=== PATIENT | male | born 1990 ===

== ENCOUNTER 2020-06-25 15:05 | Outpatient (REF) | payer OTHER, SELFPAY ==
[2020-06-25 16:46] LABS: MANUAL DIFF FLAG NO
[2020-06-25 16:49] LABS: Basophils Percent Auto 0.3 % (0-2); Eosinophils Absolute Auto 0.2 X10*3/uL (0.0-0.4); Hematocrit 46.2 % (42-52); Hemoglobin 15.2 g/dl (14.0-18.0); Imm Gran Abs Auto 0.06 X10*3/uL (0.00-0.03); Imm Gran Pct Auto 0.6 % (0.0-0.4); Lymphocytes Absolute Auto 2.8 X10*3/uL (1.2-4.9); Mean Corpuscular HGB Conc 32.9 g/dl (31.0-36.0); Mean Corpuscular Hemoglobin 29.1 pg (27.0-33.0); Mean Corpuscular Volume 88.5 fL (80-98); Mean Platelet Volume 9.5 fL (9.4-12.4); Monocytes Absolute Auto 0.7 X10*3/uL (0.1-1.2); Monocytes Percent Auto 7.4 % (2-11); Neutrophils Absolute Auto 5.7 X10*3/uL (2.0-8.3); Neutrophils Percent Auto 59.7 % (45-73); Platelet Count 230 X10*3/uL (160-400); Red Blood Count 5.22 X10*6/uL (4.60-5.80); Red Cell Distribution Width 13.3 % (11.0-16.0); White Blood Count 9.5 X10*3/uL (4.8-10.8)
[2020-06-25 17:13] LABS: Alanine Aminotransferase 48 U/L (0-40); Albumin Level 4.3 g/dL (3.5-5.0); Alkaline Phosphatase 77 U/L (39-117); Anion Gap 12 (12-20); Aspartate Amino Transferase 31 U/L (5-37); Bilirubin Total 0.4 mg/dL (0.0-1.0); Blood Urea Nitrogen 11 mg/dL (9-16); Calcium 9.7 mg/dL (8.4-10.2); Carbon Dioxide 26 mmol/L (22-29); Chloride 106 mmol/L (96-108); Estimated Glomerular Filt Rate > 60; Glucose Random 99 mg/dL (60-115); Potassium 4.3 mmol/L (3.3-5.1); Sodium 140 mmol/L (135-145); Total Protein 7.5 g/dL (6.5-8.0)
[2020-06-25 17:35] LABS: Ferritin 287 ng/mL (20-250); TSH reflex Free T4 1.43 uIU/mL (0.32-4.0)
== END 2020-06-25 15:06 | disposition home or self-care (01) ==
LOC: HO.LAB 15:05
PROVIDERS: PCP Internal Medicine; Visit Provider Nurse Practitioner
DX: K62.5 Hemorrhage of anus and rectum (principal); K64.9 Unspecified hemorrhoids; K59.00 Constipation, unspecified
CPT/HCPCS: 36415; 80053; 82728; 84443; 85025

== ENCOUNTER → 2020-07-16 13:48 | Outpatient (BNVA) | payer OTHER, SELFPAY | PROVIDERS: PCP Internal Medicine; Visit Provider Nurse Practitioner ==

== ENCOUNTER 2021-07-17 16:25 | Emergency (ER) | payer OTHER, SELFPAY ==
[2021-07-17 17:12] VITALS: BP 158/89; PULSE 88; RESP 18; TEMP 37; O2SAT 99; BMI 55.3
--- NOTE | 2021-07-17 17:44 | ED_ITS ---
HPI - Extremity Problem General Chief complaint: Extremity Problem Stated complaint: finger infection Source: patient Mode of arrival: ambulatory Limitations: no limitations History of Present Illness HPI Narrative: 31-year-old male presents with paronychia to the left index finger. Patient does bite his nails. MD Complaint: extremity pain and extremity swelling Onset (ago): day(s) (4) Pain Consistency: constant Location: left and upper extremity Severity scale (1-10): 6 Quality: aching Radiation: none Relieving factors: nothing Exacerbating factors: range of motion and palpation Associated symptoms: denies other symptoms Related Data Previous Rx's Medication Instructions Recorded sennosides 8.6 mg-docusate sodium 2 tab-cap PO BEDTIME #60 cap 06/14/20 50 mg capsule (Senna Plus) amoxicillin 875 mg-potassium 1 tab PO Q12H 7 Days #14 tab 07/17/21 clavulanate 125 mg tablet Allergies Allergy/AdvReac Type Severity Reaction Status Date / Time penicillin V Allergy Unknown ??? - has Verified 12/31/20 10:32 taken amoxicillin with no problems Penicillins [PENICILLINS] Allergy Unknown UNK Verified 12/31/20 10:32 Review of Systems Review of Systems: Constitutional: No Fever, No Chills ENT/Mouth: No Ear Pain, No Hoarseness, No sore throat Eyes: No Eye Pain, No Swelling, No Redness, No Foreign Body Cardiovascular: No Chest Pain, No SOB Respiratory: No Cough, No Dyspnea Gastrointestinal: No Nausea, No Vomiting, No Diarrhea, No abdominal Pain Genitourinary: No Dysuria, No Hematuria Musculoskeletal: positive left index finger pain, No Myalgias, No Joint Swelling Skin: Positive left index finger erythema, No Skin lacerations, No rash Neuro: No Weakness, No Numbness, No Paresthesias, No Loss of Consciousness, No Dizziness, No Headache Psych: No Anxiety/Panic, No Depression Heme/Lymph: no easy bruising, no Lymphadenopathy Endocrine: No Polyuria, No Polydipsia Yes all other systems are reviewed and are negative [facility] Past Medical History Attestation statement: The following information was validated with the patient. Source: old records reviewed Medical History Anxiety Constipation Hemorrhoids Hyperlipidemia Insomnia Morbid obesity with BMI of 50.0-59.9, adult Vitamin D deficiency Surgical History History of wisdom tooth extraction Testicular torsion Family History Family History Father Hyperlipidemia Paroxysmal atrial fibrillation Mother Diabetes FH: mental illness Family/Other FH: mental illness Maternal Grandfather Alzheimer's dementia Social History Social History Housing: Apartment Alcohol intake: never Patient Tobacco Use Status: Never used Tobacco Second Hand Smoke Exposure: Yes Advance Directives: No Advance Directives Information Provided: Yes service: No Current occupational status: employed Physical Exam Vital Signs: Vital Signs: Last Vital Signs Temp 98.6 F 07/17/21 17:12 Pulse 88 07/17/21 17:12 Resp 18 07/17/21 17:12 BP 158/89 H 07/17/21 17:12 Pulse Ox 99 07/17/21 17:12 BMI result Body Mass Index 55.3 Appearance: Alert. Oriented X3. No acute distress. Eyes: Pupils equal, round and reactive to light. ENT: Pharynx normal. Neck: Normal inspection. Neck supple. CVS: Normal heart rate and rhythm. Pulses normal. Respiratory: No respiratory distress. Breath sounds normal. Abdomen: Soft and nontender. Skin: Skin warm and dry. Normal skin color. Normal skin turgor. Extremities: Paronychia to the index finger left. Neuro: No motor deficit. No sensory deficit. Cranial nerves 2-12 intact Course Course Course Narrative: 31-year-old male presents with paronychia to the left index finger. Will update Tdap vaccine. Give Augmentin as he does bite his nails. Swelling noted after he was biting his nails several days ago. Cleaned with Betadine by this [employer]. Incision made along the cuticle line, expressed small amount of purulent drainage. Wrapped with Kerlix and Telfa. Will prescribe Augmentin for the next 7 days. Patient verbalized understanding of and agrees to plan of care to discharge home. Verbalized understanding of signs and symptoms indicating need for emergent intervention MDM - Extremity (Nontraumatic) MDM Narrative Medical decision making narrative: Paronychia, cellulitis Medical Records Attestation: I reviewed the patient's medical records. Discharge Plan Discharge Clinical Impression: Paronychia of finger Patient Disposition: Home, Self-Care Instructions: Paronychia (ED) Additional Instructions: You were evaluated for swelling to the left 1st finger. This is called a paronychia. Please take Augmentin 875 mg twice a day for the next 7 days We updated your Tdap vaccine today. Thank you for choosing this emergency department for evaluation. Please follow-up with primary care physician as needed. Return to the emergency department for any new, concerning, or worsening symptoms. Prescriptions: New amoxicillin-pot clavulanate 875-125 mg tablet 1 tab PO Q12H 7 Days Qty: 14 0RF No Action Senna Plus 8.6-50 mg capsule 2 tab-cap PO BEDTIME Qty: 60 0RF Interventions: ED Discharge Assessment Last Done: 07/17/21 18:57 Discharge Date/Time: 07/17/21 19:01
[2021-07-17] MEDS: Diphth,Pertus(ACell),Tet Adult 0.5 ML SYRINGE IM (18:17)
[2021-07-17] MEDS: Amoxicillin/Potassium Clav 875 MG TABLET PO (18:18)
[2021-07-17] MEDS: Ibuprofen 600 MG TABLET PO (18:18)
== END 2021-07-17 19:01 | disposition home or self-care (01) ==
PROVIDERS: Emergency Provider Internal Medicine; PCP Internal Medicine
DX: L03.012 Cellulitis of left finger (principal); Z88.0 Allergy status to penicillin
CPT/HCPCS: 10060; 90471; 90715; 99283; 99284

== ENCOUNTER → 2022-03-19 10:07 | Outpatient (BNVA) | payer OTHER, SELFPAY | PROVIDERS: PCP Internal Medicine; Visit Provider Nurse Practitioner | DX: K59.00 Constipation, unspecified (principal); K62.5 Hemorrhage of anus and rectum | CPT/HCPCS: 99212 ==

== ENCOUNTER 2022-06-05 12:52 | Outpatient (REF) | payer OTHER, SELFPAY ==
--- NOTE | ~2022-06-05 | XR_ITS ---
EXAMINATION: XR lumbar spine 2-3V CLINICAL INFORMATION: Reason for Exam M54.50 - Low back pain, unspecified COMPARISON: None TECHNIQUE: 3 views of the lumbar spine FINDINGS: 5 nonrib-bearing lumbar-type vertebral bodies. Vertebral body heights are maintained. Alignment is maintained. Disc space heights are maintained. Paravertebral soft tissues are unremarkable. XR/XR lumbar spine 2-3V IMPRESSION: Unremarkable exam.
--- NOTE | ~2022-06-05 | XR_ITS ---
EXAMINATION: XR HIP, RIGHT CLINICAL INFORMATION: Right hip pain COMPARISON: None available. TECHNIQUE: Two views of the right hip. FINDINGS: Bones and soft tissues are normal. No fracture. Alignment is anatomic. Hip joint space is maintained. XR/XR hip RT min 2V IMPRESSION: Normal right hip.
[2022-06-05 13:04] LABS: MANUAL DIFF FLAG NO
[2022-06-05 14:01] LABS: Basophils Absolute Auto 0.1 X10*3/uL (0.0-0.2); Basophils Percent Auto 0.6 % (0-2); Eosinophils Absolute Auto 0.2 X10*3/uL (0.0-0.4); Eosinophils Percent Auto 1.8 % (0-4); Hematocrit 46.6 % (42.0-52.0); Hemoglobin 15.4 g/dl (14.0-18.0); Imm Gran Abs Auto 0.07 X10*3/uL (0.00-0.03); Imm Gran Pct Auto 0.8 % (0.0-0.4); Lymphocytes Absolute Auto 3.1 X10*3/uL (1.2-4.9); Lymphocytes Percent Auto 34.2 % (20-40); Mean Corpuscular Volume 90.7 fL (80.0-98.0); Mean Platelet Volume 9.9 fL (9.4-12.4); Monocytes Absolute Auto 0.6 X10*3/uL (0.1-1.2); Monocytes Percent Auto 6.8 % (2-11); Neutrophils Absolute Auto 5.1 x10*3/uL (2.0-8.3); Neutrophils Percent Auto 55.8 % (45-73); Platelet Count 234 X10*3/uL (160-400); Red Blood Count 5.14 X10*6/uL (4.60-5.80); Red Cell Distribution Width 13.2 % (11.0-16.0); White Blood Count 9.1 X10*3/uL (4.8-10.8)
[2022-06-05 14:03] LABS: Appearance Urine Clear; Color Urine Yellow; Glucose Urine UA Negative (Negative); Leukocyte Esterase Urine Negative (Negative); Nitrite Urine Negative (Negative); PH 5.5 (5.0-9.0); Urine Blood Negative (Negative); Urine Ketones Negative (Negative); Urine Protein Negative (Neg-Trace)
[2022-06-05 14:18] LABS: Alanine Aminotransferase 50 U/L (0-40); Alkaline Phosphatase 68 U/L (39-117); Anion Gap 14 (12-20); Aspartate Amino Transferase 34 U/L (5-37); Bilirubin Total 0.8 mg/dL (0.0-1.0); Blood Urea Nitrogen 11 mg/dL (9-16); C Reactive Protein 0.41 mg/dL (< or = 0.50); Calcium 9.3 mg/dL (8.4-10.2); Carbon Dioxide 25 mmol/L (22-29); Chloride 105 mmol/L (96-108); Cholesterol 218 mg/dL; Estimated Glomerular Filt Rate > 60; Glucose Fasting 93 mg/dL (60-99); HDL Cholesterol 33 mg/dL; LDL Cholesterol Calculated 159 mg/dl; Magnesium 1.9 mg/dL (1.6-2.6); Potassium 4.7 mmol/L (3.3-5.1); Sodium 139 mmol/L (135-145); Total Protein 6.8 g/dL (6.5-8.0); Triglycerides 130 mg/dL
[2022-06-05 14:43] LABS: Erythrocyte Sedimentation Rate 16 MM/HR (0-15)
[2022-06-05 14:48] LABS: Folate 5.9 ng/mL (> or = 4.0); TSH reflex Free T4 2.09 uIU/mL (0.32-4.0); Vitamin B12 252 pg/mL (200-900); Vitamin D 25-OH Total 10.6 ng/mL (>30)
== END 2022-06-05 12:53 | disposition home or self-care (01) ==
LOC: HO.XRAY 12:52
PROVIDERS: PCP Internal Medicine; Visit Provider Internal Medicine
DX: Z00.00 Encounter for general adult medical examination without abnormal findings (principal); M54.50 Low back pain, unspecified; M25.551 Pain in right hip; E55.9 Vitamin D deficiency, unspecified; R20.2 Paresthesia of skin; E53.8 Deficiency of other specified B group vitamins; E78.00 Pure hypercholesterolemia, unspecified; E66.01 Morbid (severe) obesity due to excess calories; Z68.43 Body mass index [BMI] 50.0-59.9, adult
CPT/HCPCS: 36415; 72100; 73502; 80053; 80061; 81003; 82306; 82607; 82746; 83735; 84443; 85025; 85652; 86140

== ENCOUNTER 2022-06-08 07:30 | Outpatient (REF) | payer OTHER, SELFPAY ==
--- NOTE | ~2022-06-08 | CT_ITS ---
EXAMINATION: CT HEAD WITHOUT CONTRAST CLINICAL INFORMATION: Amnesia. COMPARISON: None available. TECHNIQUE: Contiguous axial imaging was performed from the skull base to vertex without intravenous administration of contrast. This CT examination was performed using dose optimization techniques as appropriate, variously including the following: *Automated exposure control. *Adjustment of mA and/or kV according to patient size (this includes techniques or standardized protocols for targeted exams where dose is matched to indication/reason for exam; i.e. extremities or head). *Use of iterative reconstruction technique. DLP: 956 mGy-cm FINDINGS: There is no evidence of acute intracranial hemorrhage or edematous territorial infarction. Glover-white matter differentiation is preserved. There is no abnormal attenuation within the brain parenchyma. The ventricles are normal in morphology and size. No evidence for obstructive hydrocephalus. No abnormal mass effect or midline shift. Normal positioning of the cerebellar tonsils. The suprasellar cistern remains widely patent. No extra-axial fluid collections. No acute soft tissue or osseous abnormalities. Mild mucosal thickening of the paranasal sinuses. Moderate leftward nasal septal deviation with spurring. The mastoid air cells and middle ear cavities are clear. CT/CT head/brain wo IV con IMPRESSION: No evidence of acute intracranial hemorrhage or edematous territorial infarction.
== END 2022-06-08 07:31 | disposition home or self-care (01) ==
LOC: HO.CT 07:30
PROVIDERS: PCP Internal Medicine; Visit Provider Nurse Practitioner Family
DX: R41.3 Other amnesia (principal)
CPT/HCPCS: 70450

== ENCOUNTER 2022-06-08 13:45 | Outpatient (AMB) | payer OTHER, SELFPAY ==
[2022-06-08 14:17] VITALS: BP 192/80; PULSE 92; TEMP 36.1; O2SAT 97; BMI 54.1
--- NOTE | 2022-06-08 14:17 | MHC.PC.OV ---
Vital Signs 06/08/22 14:17 Height 5 ft 10 in Weight 377 lb 2 oz BMI 54.1 BP 192/80 H Blood Pressure Location Lt brachial Position Sitting Pulse 92 Pulse Source Pulse Oximeter Temp 97.0 F Temp Source Skin Pulse Oximetry (%) 97 Oxygen Delivery Method Room Air Intake Visit Reasons: Back Pain Intake Note: Pt is here for back pain Stitcher Feeder Required: No Accompanied by: Self / Same As Patient Allergies penicillin V Allergy (Unknown, Verified 03/08/23 15:30) ??? - has taken amoxicillin with no problems Penicillins [PENICILLINS] Allergy (Unknown, Verified 03/08/23 15:30) UNK Medication List - Last Reconciled 06/08/22 by Shaun Washburn MD No Known Home Meds Tobacco use date assessed: 05/21/22 HPI Back Pain HPI Details Patient comes in today complaining of increased low back pain and left groin / testicular pain x 1 week Reports experiencing some tingling sensation in his left arm last night but thinks that this was mostly because he was lying down on his arm when he woke up with the symptoms, and that they eventually subsided on their own after a few minutes and have not recurred since Recalls that he felt some sharp pains in his neck as well yesterday States that he had some x-rays and a head CT done last week on 06/05/22 and saw on his portal that the reports are NOT YET AVAILABLE at this time Also reports experiencing some twinges of pain in his right hip lately but thinks that he may have somehow strained his hip sometime recently Has been using some OTC pain patches and Ibuprofen PRN lately to help manage his symptoms He denies any headaches or dizziness Denies any chest pains, no SOB No nausea/vomiting, no abdominal pain and no change in bowel habits noted PFSH Medical History Nephrolithiasis Memory loss of unknown cause Anxiety Constipation Hemorrhoids Insomnia Morbid obesity with BMI of 50.0-59.9, adult Vitamin D deficiency Hyperlipidemia Surgical History Testicular torsion History of wisdom tooth extraction Family History Father Hyperlipidemia Paroxysmal atrial fibrillation Mother Diabetes FH: mental illness Family/Other FH: mental illness Maternal Grandfather Alzheimer's dementia Paternal Grandfather Skin cancer Paternal Uncle Multiple sclerosis Social History Housing: Apartment Alcohol intake: never Patient Tobacco Use Status: Never used Tobacco e-Cigarette/Vaping Use: Never Used Second Hand Smoke Exposure: Yes service: No Current occupational status: employed Cognitive needs: No Hearing needs: No Vision needs: Yes Questionnaire PHQ-9 Over the last 2 weeks, how often have you been bothered by any of the following problems? 1. Little interest or pleasure in doing things: several days 2. Feeling down, depressed, or hopeless: several days 3. Trouble falling or staying asleep, or sleeping too much: several days 4. Feeling tired or having little energy: several days 5. Poor appetite or overeating: several days 6. Feeling bad about yourself - or that you are a failure or have let yourself or your family down: several days 7. Trouble concentrating on things, such as reading the newspaper or watching television: several days 8. Moving or speaking so slowly that other people could have noticed. Or the opposite - being so fidgety or restless that you have been moving around a lot more than usual: several days 9. Thoughts that you would be better off or of hurting yourself in some way: several days Total score: 9 Depression Screening Interpretation: Positive Depression Screening Follow-up: Existing condition and Declines treatment 47853 - PHQ-9 Billing: Yes Source: Developed by Drs. Amilcar Mccollum, Mirta Sanchez, Gallo Mcneil and colleagues, with an educational debora from [employer]. Thrive Questionnaire Date Thrive assessed: 05/21/22 I am a: Patient What is your living situation today?: I have a steady place to live Within the past 12 months, did the food you bought not last and you didn't have the money to get more?: Never true Within the past 12 months, did you worry whether your food would run out before you got money to buy more?: Never true Do you have trouble paying for medicines?: No Do you have trouble getting transportation to medical appointments?: No Do you have trouble paying your heating and electricity bill?: No Do you have trouble taking care of your child, family member or friend?: No Do you have trouble with day-to-day activities such as bathing, preparing meals, shopping, managing finances, etc.?: No Are you currently unemployed and looking for a job?: No Are you interested in more education?: No Currently or been in a relationship where the following occur: no concerns reported AUDIT C Alcohol Use Questionnaire (AUDIT-C) 1. How often do you have a drink containing alcohol?: Never 3. How often do you have six or more drinks on one occasion?: Never Total Score: 0 Score Reviewed/Action Taken: Yes LJ-7 AMB Questionnaire LJ-7 Date LJ - 7 assessed: 05/21/22 Feeling nervous, anxious, or on edge: 1 = Several days Not being able to stop or control worryin = More than half the days Worrying too much about different things: 2 = More than half the days Trouble relaxin = More than half the days Being so restless that it is hard to sit still: 1 = Several days Becoming easily annoyed or irritable: 1 = Several days Feeling afraid as if something awful might happen: 2 = More than half the days Total LJ-7 score (0-4 normal; 5-9 mild; 10-14 moderate; 15-21 severe): 11 Source: Developed by Drs. Amilcar Mccollum, Mirta Sanchez, Gallo Mcneil and colleagues, with an educational debora from [employer]. Review of Systems Const Denies chills, Denies fatigue, Denies fever(s) and Denies headache(s) ENT Denies dysphagia, Denies dizziness, Denies otalgia, Denies headache(s), Reports neck pain (on and off), Denies odynophagia and Denies sore throat Card Denies chest pain, Denies palpitations and Denies dyspnea Resp Denies cough and Denies dyspnea GI Details: (+) on and off sharp pain over the left groin/inguinal area Denies abdominal pain, Denies constipation, Denies dysphagia, Denies heartburn, Denies diarrhea, Denies nausea, Denies odynophagia and Denies vomiting Denies dysuria, Denies nocturia and Denies urinary frequency Musc Reports back pain (on and off, over the lower back) and Reports neck pain (on and off) Skin/Breast Denies rash Neuro Denies dizziness and Denies headache(s) Endo Denies fatigue and Denies palpitations Physical exam (Primary Care) Vital Signs: Last Vital Signs Temp 97.0 F 06/08/22 14:17 Pulse 92 06/08/22 14:17 BP 192/80 H 06/08/22 14:17 Pulse Ox 97 06/08/22 14:17 Oxygen Delivery Method Room Air 06/08/22 14:17 BMI result Body Mass Index 54.1 Tobacco/Smoking Status: Tobacco use Status Tobacco use date assessed 05/21/22 06/08/22 14:19 Patient Tobacco Use Status Never used Tobacco 06/08/22 14:19 e-Cigarette/Vaping Use Never Used 06/08/22 14:19 PHQ-9: PHQ-9 Score PHQ-9: Total score 9 06/08/22 14:58 Depression Screening Interpretation: Positive Depression Screening Follow-up: Existing condition and Declines treatment Thrive Assessment: Date of Thrive Assessment Date Thrive assessed 05/21/22 06/08/22 14:19 Currently or been in a relationship where the following occur: no concerns reported Const General: no acute distress and alert HENMT Throat: Yes posterior oropharynx normal and Yes tonsils normal Neck Neck: Yes no lymphadenopathy and Yes supple Resp Auscultation: clear to auscultation bilaterally, no rales and no wheezes Cardio Rate: regular rate Rhythm: regular rhythm Heart sounds: no murmurs GI Palpation (GI): Soft to palpation and nontender Auscultation: normal bowel sounds Other: (+) mild tenderness on deep palpation over the left inguinal area Scrotum: testes descended bilaterally, no inguinal hernias, no masses and no scrotal swelling Back/Spine/Pelvis Cervical Spine: No Cervical spine tenderness Thoracic/Lumbar Spine: lumbar spinal tenderness (mild) Skin Rashes: no rashes Extrem General: Yes no clubbing, cyanosis or edema Assessment and Plan Assessment & Plan (1) Low back pain: Code(s): M54.50 - Low back pain, unspecified Qualifiers: Back pain laterality: midline Chronicity: unspecified Sciatica presence: without sciatica Qualified Code(s): M54.50 - Low back pain, unspecified Plan: Reinforced activity and weight-lifting restrictions Will follow up the results of his lumbar spine x-rays done yesterday (2) Right hip pain: Code(s): M25.551 - Pain in right hip Plan: Most likely due to hip strain Will start him for now on Tizanidine 4 mg TID PRN He is advised to call if his hip pain gets worse over the next few days - may need to refer him to physical therapy then Plan Follow up in 4 months Medications: New tizanidine 4 mg PO Q8H PRN 30 tabs 1RF low back pain 10 days Coding Level of Care Code Est Pt Level 3 (70886) Diagnoses Midline low back pain without sciatica, unspecified chronicity M54.50 Back pain laterality: midline Chronicity: unspecified Sciatica presence: without sciatica Right hip pain M25.551
== END 2022-06-08 15:06 | disposition home or self-care (01) ==
LOC: HO.HMGH 13:45
PROVIDERS: PCP Internal Medicine; Visit Provider Internal Medicine
DX: M54.50 Low back pain, unspecified (principal); M25.551 Pain in right hip
CPT/HCPCS: 99213

== ENCOUNTER 2022-06-19 12:07 | Emergency (ER) | payer OTHER, SELFPAY ==
--- NOTE | ~2022-06-19 | US_ITS ---
EXAMINATION: US SCROTUM CLINICAL INFORMATION: Left testicle pain. COMPARISON: September 27, 2015 TECHNIQUE: A sonogram of the scrotum was performed assessing gonsalez-scale appearance and color Doppler flow. Spectral Doppler analysis of the arterial and venous flow were performed in the testes bilaterally. FINDINGS: RIGHT: Right testicle measures 4.3 x 2.9 x 2.5 cm, volume 16.5 mL. No focal testicular parenchymal lesions are visualized. Spectral Doppler analysis of the arterial and venous flow is normal in the right testis. Right epididymal head is normal in size. No right varicocele is seen. There is a minimal right hydrocele present. Right epididymal Doppler flow is normal. LEFT: Left testicle measures 4.2 x 2.4 x 2.7 cm, volume 14.1 mL. No focal testicular parenchymal lesions are visualized. Spectral Doppler analysis of the arterial and venous flow is normal in the left testis. Left epididymal head is normal in size. No left hydrocele or varicocele is seen. Left epididymal Doppler flow is normal. US/US scrotum doppler IMPRESSION: Minimal right hydrocele. Otherwise essentially unremarkable scrotal ultrasound.
--- NOTE | ~2022-06-19 | CT_ITS ---
EXAMINATION: CT ABDOMEN AND PELVIS WITHOUT CONTRAST CLINICAL INFORMATION: Left flank pain radiating to left testicle COMPARISON: CT 04/11/2018 TECHNIQUE: Multidetector volumetric imaging was performed from the superior aspect of the liver through the pubic symphysis. Sagittal and coronal reformatted images were obtained on the technologist's workstation. This CT examination was performed using dose optimization techniques as appropriate, variously including the following: *Automated exposure control *Adjustment of mA and/or kV according to patient size (this includes techniques or standardized protocols for targeted exams where dose is matched to indication/reason for exam; i.e. extremities or head) *Use of iterative reconstruction technique DLP: 2784 mGy-cm FINDINGS: LUNG BASES: The visualized lung bases are unremarkable. LIVER, GALLBLADDER, AND BILIARY TREE: Diffuse fatty infiltration of the liver. The gallbladder is unremarkable with no evidence of radiopaque gallstones, gallbladder wall thickening, or obvious pericholecystic inflammatory changes. PANCREAS: Unremarkable. SPLEEN: Unremarkable. ADRENAL GLANDS: Unremarkable. KIDNEYS AND URETERS: There is a punctate calculus within the proximal left ureter demonstrated on series 3, image 53 and series 5, image 58 located at the level of L4 with very mild hydronephrosis. No additional renal or ureteral calculi. BLADDER: Unremarkable. GASTROINTESTINAL TRACT: The small and large bowel are unremarkable. The appendix is unremarkable. ABDOMINAL WALL: No significant hernia is appreciated. LYMPH NODES: Normal. VASCULAR: Unremarkable. PELVIC VISCERA: Unremarkable. OSSEOUS STRUCTURES: Unremarkable. CT/CT abdomen pelvis wo IV con IMPRESSION: 1. There is a punctate calculus within the proximal left ureter at the level of L4 with very mild hydronephrosis. 2. Diffuse fatty infiltration of the liver. Fleischner guidelines were followed.
--- NOTE | ~2022-06-19 | US_ITS ---
EXAMINATION: US SCROTUM CLINICAL INFORMATION: Left testicle pain. COMPARISON: September 27, 2015 TECHNIQUE: A sonogram of the scrotum was performed assessing gonsalez-scale appearance and color Doppler flow. Spectral Doppler analysis of the arterial and venous flow were performed in the testes bilaterally. FINDINGS: RIGHT: Right testicle measures 4.3 x 2.9 x 2.5 cm, volume 16.5 mL. No focal testicular parenchymal lesions are visualized. Spectral Doppler analysis of the arterial and venous flow is normal in the right testis. Right epididymal head is normal in size. No right varicocele is seen. There is a minimal right hydrocele present. Right epididymal Doppler flow is normal. LEFT: Left testicle measures 4.2 x 2.4 x 2.7 cm, volume 14.1 mL. No focal testicular parenchymal lesions are visualized. Spectral Doppler analysis of the arterial and venous flow is normal in the left testis. Left epididymal head is normal in size. No left hydrocele or varicocele is seen. Left epididymal Doppler flow is normal. US/US scrotum IMPRESSION: Minimal right hydrocele. Otherwise essentially unremarkable scrotal ultrasound.
[2022-06-19 12:17] VITALS: BP 129/71; PULSE 91; RESP 20; TEMP 36.9; O2SAT 98; BMI 53.4
--- NOTE | 2022-06-19 12:23 | ED_ITS ---
HPI - Male Genitourinary General Chief complaint: Urogenital-Male <REE Gutierrez - Last Filed: 06/19/22 12:24> Stated complaint: Left testicle <REE Gutierrez - Last Filed: 06/19/22 12:24> Time Seen by Provider: 06/19/22 16:10 <REE Gutierrez - Last Filed: 06/19/22 12:24> Source: patient <Silvia Rushing NP - Last Filed: 06/20/22 09:14> Mode of arrival: ambulatory <Siliva Rushing NP - Last Filed: 06/20/22 09:14> Limitations: no limitations <Silvia Rushing NP - Last Filed: 06/20/22 09:14> History of Present Illness HPI Narrative: 32 yo male with history of right testicular torsion here with complaints left testicle pain today with nausea. Has had intermittent left sided back pain with radiation to the left abdomen over the last week. No urinary symptoms, fevers, chills, vomiting, diarrhea. Patient denies any sexual activitiy ever. <Silvia Rushing NP - Last Filed: 06/20/22 09:14> Related Data Home medications: Previous Rx's Medication Instructions Recorded tizanidine 4 mg tablet 4 mg PO Q8H PRN low back pain 10 06/08/22 days #30 tabs <REE Gutierrez - Last Filed: 06/19/22 12:24> Allergies/Adverse reactions: Allergies Allergy/AdvReac Type Severity Reaction Status Date / Time penicillin V Allergy Unknown ??? - has Verified 06/19/22 12:20 taken amoxicillin with no problems Penicillins [PENICILLINS] Allergy Unknown UNK Verified 06/19/22 12:20 <REE Gutirerez - Last Filed: 06/19/22 12:24> Review of Systems Review of Systems: Yes all other systems are reviewed and are negative <Silvia Rushing NP - Last Filed: 06/20/22 09:14> Constitutional: Constitutional: Reports no additional constitutional complaints, Denies body ache(s), Denies chills, Denies fever(s), Denies headache(s) and Denies weakness <Silvia Rushing DISTRIBUTION SALES MANAGER - Last Filed: 06/20/22 09:14> Eyes: Eyes: Reports no additional eye complaints and Denies change in vision <Silvia Rushing DISTRIBUTION SALES MANAGER - Last Filed: 06/20/22 09:14> ENT: Reports system reviewed and no additional complaints, except as documented, Denies dizziness, Denies headache(s), Denies nasal congestion, Denies nasal discharge and Denies neck pain <Silvia Rushing DISTRIBUTION SALES MANAGER - Last Filed: 06/20/22 09:14> Cardiovascular: Cardiovascular: Reports no additional cardiovascular complaints, Denies chest pain, Denies leg edema and Denies dyspnea <Silvia Rushing DISTRIBUTION SALES MANAGER - Last Filed: 06/20/22 09:14> Respiratory: Respiratory: Reports no additional respiratory complaints, Denies cough and Denies dyspnea <Silvia Rushing DISTRIBUTION SALES MANAGER - Last Filed: 06/20/22 09:14> Gastrointestinal: Gastrointestinal: Reports no additional gastrointestinal complaints, Denies abdominal pain, Denies diarrhea, Reports nausea and Denies vomiting <Silvia Rushing DISTRIBUTION SALES MANAGER - Last Filed: 06/20/22 09:14> Genitourinary: Genitourinary: Reports testicular pain and Denies urinary incontinence <Silvia Rushing DISTRIBUTION SALES MANAGER - Last Filed: 06/20/22 09:14> Musculoskeletal: Musculoskeletal: Reports no additional musculoskeletal complaints, Denies back pain, Denies arthralgias, Denies joint swelling, Denies neck pain, Denies numbness and Denies tingling <Silvia Rushing DISTRIBUTION SALES MANAGER - Last Filed: 06/20/22 09:14> Integumentary/Breasts: Skin/Breast: Reports system reviewed and no additional complaints, except as docu and Denies rash <Silvia Rushing DISTRIBUTION SALES MANAGER - Last Filed: 06/20/22 09:14> Neurologic: Reports system reviewed and no additional complaints, except as documented, Denies Abnormal speech present, Denies dizziness, Denies headache(s), Denies numbness, Denies tingling and Denies weakness <Silvia Rushing DISTRIBUTION SALES MANAGER - Last Filed: 06/20/22 09:14> PMF Past Medical History Attestation statement: The following information was validated with the patient. <Silvia Rushing NP - Last Filed: 06/20/22 09:14> Source: old records reviewed and nursing notes reviewed <Silvia Rushing NP - Last Filed: 06/20/22 09:14> Medical History: Medical History Anxiety Constipation Hemorrhoids Hyperlipidemia Insomnia Memory loss of unknown cause Morbid obesity with BMI of 50.0-59.9, adult Vitamin D deficiency <REE Gutierrez - Last Filed: 06/19/22 12:24> Surgical History: Surgical History History of wisdom tooth extraction Testicular torsion <REE Gutierrez - Last Filed: 06/19/22 12:24> Family History Family History: Family History Father Hyperlipidemia Paroxysmal atrial fibrillation Mother Diabetes FH: mental illness Family/Other FH: mental illness Maternal Grandfather Alzheimer's dementia Paternal Grandfather Skin cancer Paternal Uncle Multiple sclerosis <REE Gutierrez - Last Filed: 06/19/22 12:24> Social History Social History: Social History Housing: Apartment Alcohol intake: never Patient Tobacco Use Status: Never used Tobacco e-Cigarette/Vaping Use: Never Used Second Hand Smoke Exposure: Yes Advance Directives: No Advance Directives Information Provided: No service: No Current occupational status: employed Cognitive needs: No Hearing needs: No Vision needs: Yes <REE Gutierrez - Last Filed: 06/19/22 12:24> Physical Exam Vital Signs: Vital Signs: Last Vital Signs Temp 98.5 F 06/19/22 12:17 Pulse 78 06/19/22 19:33 Resp 16 06/19/22 19:33 BP 156/82 H 06/19/22 19:33 Pulse Ox 98 06/19/22 19:33 O2 Del Method Room Air 06/19/22 19:33 BMI result Body Mass Index 53.4 <REE Gutierrez - Last Filed: 06/19/22 12:24> Vital Signs: Last Vital Signs Temp 98.5 F 06/19/22 12:17 Pulse 78 06/19/22 19:33 Resp 16 06/19/22 19:33 BP 156/82 H 06/19/22 19:33 Pulse Ox 98 06/19/22 19:33 O2 Del Method Room Air 06/19/22 19:33 BMI result Body Mass Index 53.4 <Silvia Rushing NP - Last Filed: 06/20/22 09:14> Const: General: cooperative, healthy appearing, comfortable and no acute distress <Silvia Rushing NP - Last Filed: 06/20/22 09:14> Orientation/consciousness: patient oriented x3 <Silvia Rushing NP - Last Filed: 06/20/22 09:14> Limitations: no limitations <Silvia Rushing NP - Last Filed: 06/20/22 09:14> HEENT: Head: Yes normal to inspection <Silvia Rushing NP - Last Filed: 06/20/22 09:14> Ears: hearing grossly normal bilaterally <Silvia Rushing NP - Last Filed: 06/20/22 09:14> General nose exam: Normal external nose present <Silvia Rushing NP - Last Filed: 06/20/22 09:14> Face and sinus: Yes normal facial exam <Silvia Rushing NP - Last Filed: 06/20/22 09:14> Mouth: Normal oral and palatal mucosa present <Silvia Rushing NP - Last Filed: 06/20/22 09:14> Throat: Yes posterior oropharynx normal <Silvia Rushing NP - Last Filed: 06/20/22 09:14> Eyes: General: appearance normal, both eyes and all related structures <Silvia Rushing NP - Last Filed: 06/20/22 09:14> Pupils: Equal, round and reactive pupils present <Silvia Rushing NP - Last Filed: 06/20/22 09:14> Neck: Neck: Yes normal visual inspection <Silvia Rushing NP - Last Filed: 06/20/22 09:14> Chest: Chest palpation & inspection: normal inspection of the chest <Silvia Rushing DISTRIBUTION SALES MANAGER - Last Filed: 06/20/22 09:14> Resp: Effort & Inspection: normal respiratory effort <Silvia Rushing DISTRIBUTION SALES MANAGER - Last Filed: 06/20/22 09:14> Auscultation: clear to auscultation bilaterally <Silvia Rushing DISTRIBUTION SALES MANAGER - Last Filed: 06/20/22 09:14> Cardio: Rate: regular rate <Silvia Rushing DISTRIBUTION SALES MANAGER - Last Filed: 06/20/22 09:14> Rhythm: regular rhythm <Silvia Rushing DISTRIBUTION SALES MANAGER - Last Filed: 06/20/22 09:14> Peripheral pulses: Peripheral pulses 2+ throughout <Silvia Rushing DISTRIBUTION SALES MANAGER - Last Filed: 06/20/22 09:14> GI: Inspection: Yes normal to inspection <Silvia Rushing DISTRIBUTION SALES MANAGER - Last Filed: 06/20/22 09:14> Palpation (GI): Soft to palpation and nontender <Silvia Rushing DISTRIBUTION SALES MANAGER - Last Filed: 06/20/22 09:14> Auscultation: normal bowel sounds <Silvia Rushing DISTRIBUTION SALES MANAGER - Last Filed: 06/20/22 09:14> : Other: Roberta MELGAR as career education teacher <Silvia Rushing DISTRIBUTION SALES MANAGER - Last Filed: 06/20/22 09:14> General: Yes no CVA tenderness <Silvia Rushing DISTRIBUTION SALES MANAGER - Last Filed: 06/20/22 09:14> Penis: normal penis <Silvia Rushing DISTRIBUTION SALES MANAGER - Last Filed: 06/20/22 09:14> Scrotum: scrotum normal <Silvia Rushing DISTRIBUTION SALES MANAGER - Last Filed: 06/20/22 09:14> Testes: Testes normal, no testicular swelling and no testicular tenderness <Silvia Rushing DISTRIBUTION SALES MANAGER - Last Filed: 06/20/22 09:14> Back/Spine/Pelvis: Back: no CVA tenderness <Silvia Rushing DISTRIBUTION SALES MANAGER - Last Filed: 06/20/22 09:14> Thoracic/Lumbar Spine: thoracic and lumbar spine normal to inspection <Silvia Rushing DISTRIBUTION SALES MANAGER - Last Filed: 06/20/22 09:14> Skin: General skin exam: no rashes or lesions noted <Silvia Rushing, DISTRIBUTION SALES MANAGER - Last Filed: 06/20/22 09:14> Neuro: General: patient oriented x3, no focal motor deficits and normal sensation to monofilament <Silvia Rushing DISTRIBUTION SALES MANAGER - Last Filed: 06/20/22 09:14> Cranial nerves: Yes Equal, round and reactive pupils present <Silvia Rushing, DISTRIBUTION SALES MANAGER - Last Filed: 06/20/22 09:14> Cognition (Neuro): normal cognition <Silvia Rushing, DISTRIBUTION SALES MANAGER - Last Filed: 06/20/22 09:14> Speech: No Abnormal speech present <Silviakareem Rushing, DISTRIBUTION SALES MANAGER - Last Filed: 06/20/22 09:14> Gait exam (Neuro): Normal gait present <Silvia Rushing DISTRIBUTION SALES MANAGER - Last Filed: 06/20/22 09:14> Motor exam (neuro): 5/5 motor strength present throughout <Silvia Rushing, DISTRIBUTION SALES MANAGER - Last Filed: 06/20/22 09:14> Extrem: General: Yes normal to inspection <Silvia Rushing DISTRIBUTION SALES MANAGER - Last Filed: 06/20/22 09:14> Course Course Course Narrative: RME performed by Areli Colmenares PA-C. Patient is 32 year old assigned male at presenting to the emergency department with left testicular pain. Patient has a history of right sided torsion. Labs and imaging ordered. Patient placed back in the waiting room pending room availability and results. <REE Gutierrez - Last Filed: 06/19/22 12:24> Reevaluation(s) Reevaluation #1: 1930-Sign out to Areli KEENAN pending CT <Silvia Rushing NP - Last Filed: 06/20/22 09:14> Medical Decision Making Medical Decision Making MDM Narrative: 32 yo male with history of obesity here with intermittent left sided flank pain with radiation to left abdomen over one week, radiating to left testicle today with nausea. On exam normal with no evidence of torsion. Patient reports no pain at this time but states flank/abdomen pain is intermittent. NO CVAT or AP. Will obtain labs, UA, US, CT A/P <Silvia Rushing NP - Last Filed: 06/20/22 09:14> Differential Diagnosis Differential Diagnoses: The differential diagnosis associated with the presentation includes <Silvia Rushing NP - Last Filed: 06/20/22 09:14> Less likely testicular torsion, intermittent torsion, epididymitis. Consider renal colic <Silvia Rushing NP - Last Filed: 06/20/22 09:14> Lab Data MDM Lab Attestation statement: I reviewed the patient's lab results. <Silvia Rushing NP - Last Filed: 06/20/22 09:14> Result Diagrams: 06/19/22 12:32 06/19/22 12:32 <REE Gutierrez - Last Filed: 06/19/22 12:24> Labs: Lab Results 06/19/22 06/19/22 06/19/22 Range/Units 12:32 12:32 12:32 WBC 12.7 H (4.8-10.8) X10*3/uL RBC 5.17 (4.60-5.80) X10*6/uL Hgb 15.4 (14.0-18.0) g/dl Hct 45.5 (42.0-52.0) % MCV 88.0 (80.0-98.0) fL MCH 29.8 (27.0-33.0) pg MCHC 33.8 (31.0-36.0) g/dl RDW 13.0 (11.0-16.0) % Plt Count 245 (160-400) X10*3/uL MPV 9.3 L (9.4-12.4) fL Absolute Nucleated RBC 0.000 (0.0-0.012) X10*3/uL Nucleated RBC % (auto) 0.0 (0.0-0.2) /100WBC Neutrophils % (Manual) 72 (45-73) % Band Neutrophils % 4 (3-5) % Lymphocytes % (Manual) 13 L (20-40) % Monocytes % (Manual) 9 (2-11) % Eosinophils % (Manual) 1 (0-4) % Basophils % (Manual) 1 (0-2) % Abs Neuts (Manual) 9.7 H (2.0-8.3) X10*3/uL Lymphocytes # (Manual) 1.7 (1.2-4.9) X10*3/uL Monocytes # (Manual) 1.1 (0.1-1.2) X10*3/uL Eosinophils # (Manual) 0.1 (0.0-0.4) X10*3/uL Basophils # (Manual) 0.1 (0.0-0.2) X10*3/uL Platelet Estimate NORMAL (NORMAL) Plt Morphology Comment NORMAL RBC Morphology NORMAL Sodium 140 (135-145) mmol/L Potassium 4.2 (3.3-5.1) mmol/L Chloride 107 (96-108) mmol/L Carbon Dioxide 26 (22-29) mmol/L Anion Gap 11 L (12-20) BUN 10 (9-16) mg/dL Creatinine 0.98 (0.5-1.4) mg/dL Estim Creat Clear Calc 167.1 Estimated GFR > 60 Random Glucose 110 (60-115) mg/dL Calcium 9.6 (8.4-10.2) mg/dL Total Bilirubin 0.7 (0.0-1.0) mg/dL Direct Bilirubin 0.2 (0.0-0.5) mg/dL AST 33 (5-37) U/L ALT 46 H (0-40) U/L Alkaline Phosphatase 71 (39-117) U/L Total Protein 7.1 (6.5-8.0) g/dL Albumin 4.2 (3.5-5.0) g/dL Lipase 20 (8-78) U/L Urine Color Dark Yellow Urine Appearance Cloudy Urine pH 5.5 (5.0-9.0) Ur Specific [place] >= 1.030 H (1.005-1.025) Urine Protein 30 (1+) H (Neg-Trace) mg/dL Urine Glucose (UA) Negative (Negative) mg/dL Urine Ketones Trace (Negative) mg/dL Urine Blood Moderate (2+) H (Negative) Urine Nitrite Negative (Negative) Ur Leukocyte Esterase Negative (Negative) Urine RBC >20 H (0-2) /HPF Urine WBC 0-5 (0-5) /HPF Ur Squamous Epith Cells 3-5 (0-2) /HPF Urine Bacteria None Seen (None Seen) Hyaline Casts 0-2 (0-2) /LPF <REE Gutierrez - Last Filed: 06/19/22 12:24> Lab Results 06/19/22 06/19/22 06/19/22 Range/Units 12:32 12:32 12:32 WBC 12.7 H (4.8-10.8) X10*3/uL RBC 5.17 (4.60-5.80) X10*6/uL Hgb 15.4 (14.0-18.0) g/dl Hct 45.5 (42.0-52.0) % MCV 88.0 (80.0-98.0) fL MCH 29.8 (27.0-33.0) pg MCHC 33.8 (31.0-36.0) g/dl RDW 13.0 (11.0-16.0) % Plt Count 245 (160-400) X10*3/uL MPV 9.3 L (9.4-12.4) fL Absolute Nucleated RBC 0.000 (0.0-0.012) X10*3/uL Nucleated RBC % (auto) 0.0 (0.0-0.2) /100WBC Neutrophils % (Manual) 72 (45-73) % Band Neutrophils % 4 (3-5) % Lymphocytes % (Manual) 13 L (20-40) % Monocytes % (Manual) 9 (2-11) % Eosinophils % (Manual) 1 (0-4) % Basophils % (Manual) 1 (0-2) % Abs Neuts (Manual) 9.7 H (2.0-8.3) X10*3/uL Lymphocytes # (Manual) 1.7 (1.2-4.9) X10*3/uL Monocytes # (Manual) 1.1 (0.1-1.2) X10*3/uL Eosinophils # (Manual) 0.1 (0.0-0.4) X10*3/uL Basophils # (Manual) 0.1 (0.0-0.2) X10*3/uL Platelet Estimate NORMAL (NORMAL) Plt Morphology Comment NORMAL RBC Morphology NORMAL Sodium 140 (135-145) mmol/L Potassium 4.2 (3.3-5.1) mmol/L Chloride 107 (96-108) mmol/L Carbon Dioxide 26 (22-29) mmol/L Anion Gap 11 L (12-20) BUN 10 (9-16) mg/dL Creatinine 0.98 (0.5-1.4) mg/dL Estim Creat Clear Calc 167.1 Estimated GFR > 60 Random Glucose 110 (60-115) mg/dL Calcium 9.6 (8.4-10.2) mg/dL Total Bilirubin 0.7 (0.0-1.0) mg/dL Direct Bilirubin 0.2 (0.0-0.5) mg/dL AST 33 (5-37) U/L ALT 46 H (0-40) U/L Alkaline Phosphatase 71 (39-117) U/L Total Protein 7.1 (6.5-8.0) g/dL Albumin 4.2 (3.5-5.0) g/dL Lipase 20 (8-78) U/L Urine Color Dark Yellow Urine Appearance Cloudy Urine pH 5.5 (5.0-9.0) Ur Specific [place] >= 1.030 H (1.005-1.025) Urine Protein 30 (1+) H (Neg-Trace) mg/dL Urine Glucose (UA) Negative (Negative) mg/dL Urine Ketones Trace (Negative) mg/dL Urine Blood Moderate (2+) H (Negative) Urine Nitrite Negative (Negative) Ur Leukocyte Esterase Negative (Negative) Urine RBC >20 H (0-2) /HPF Urine WBC 0-5 (0-5) /HPF Ur Squamous Epith Cells 3-5 (0-2) /HPF Urine Bacteria None Seen (None Seen) Hyaline Casts 0-2 (0-2) /LPF <Silvia Rushing NP - Last Filed: 06/20/22 09:14> Independent Interpretation I performed an independent interpretation of an: Ultrasound and CT Scan <Silvia Rushing NP - Last Filed: 06/20/22 09:14> Interpretation: I independetely reviewed the ultrasound agree with radiologist report <Silvia Rushing NP - Last Filed: 06/20/22 09:14> Radiology Impression Discussion of test interpretation with radiology: I have reviewed the radiologist's reading. <Silvia Rushing NP - Last Filed: 06/20/22 09:14> Radiologist Impression: [address] [address] Ultrasound Report Signed Patient: Daniele Barron MR#: [id number] : 1990 Acct:[id number] Age/Sex: 32 / M ADM Date: 06/19/22 Loc: [facility].ED Attending Dr: Ordering Physician: Generic ED Physician Date of Service: 06/19/22 Procedure(s): US scrotum doppler Accession Number(s): [id number] cc: Generic ED Physician~ EXAMINATION: US SCROTUM CLINICAL INFORMATION: Left testicle pain. COMPARISON: September 27, 2015 TECHNIQUE: A sonogram of the scrotum was performed assessing gonsalez-scale appearance and color Doppler flow. Spectral Doppler analysis of the arterial and venous flow were performed in the testes bilaterally. FINDINGS: RIGHT: Right testicle measures 4.3 x 2.9 x 2.5 cm, volume 16.5 mL. No focal testicular parenchymal lesions are visualized. Spectral Doppler analysis of the arterial and venous flow is normal in the right testis. Right epididymal head is normal in size. No right varicocele is seen. There is a minimal right hydrocele present. Right epididymal Doppler flow is normal. LEFT: Left testicle measures 4.2 x 2.4 x 2.7 cm, volume 14.1 mL. No focal testicular parenchymal lesions are visualized. Spectral Doppler analysis of the arterial and venous flow is normal in the left testis. Left epididymal head is normal in size. No left hydrocele or varicocele is seen. Left epididymal Doppler flow is normal. US/US scrotum doppler IMPRESSION: Minimal right hydrocele. Otherwise essentially unremarkable scrotal ultrasound. <Silvia Rushing NP - Last Filed: 06/20/22 09:14> Discharge Plan Discharge Clinical Impression: Renal colic <REE Gutierrez - Last Filed: 06/19/22 12:24> Patient Disposition: Home, Self-Care <REE Gutierrez - Last Filed: 06/19/22 12:24> Instructions: Renal Colic (ED) <REE Gutierrez - Last Filed: 06/19/22 12:24> Additional Instructions: Take Motrin or Tylenol for pain as needed Return for any fever, vomiting, severe pain <REE Gutierrez - Last Filed: 06/19/22 12:24> Prescriptions: No Action tizanidine 4 mg tablet 4 mg PO Q8H PRN (Reason: low back pain) 10 Days Qty: 30 1RF <REE Gutierrez - Last Filed: 06/19/22 12:24> Referrals: [facility] [Provider Group] - 2 weeks <REE Gutierrez - Last Filed: 06/19/22 12:24> Interventions: ED Discharge Assessment Last Done: 06/19/22 20:21 <REE Gutierrez - Last Filed: 06/19/22 12:24> Discharge Date/Time: 06/19/22 20:25 <REE Gutierrez - Last Filed: 06/19/22 12:24>
[2022-06-19 12:40] LABS: Baso%MD 0.4 %; Eos%MD 0.6 %; Hematocrit 45.5 % (42.0-52.0); Hemoglobin 15.4 g/dl (14.0-18.0); IG%MD 0.5 %; Lymph%MD 18.8 %; Mean Corpuscular HGB Conc 33.8 g/dl (31.0-36.0); Mean Corpuscular Hemoglobin 29.8 pg (27.0-33.0); Mean Platelet Volume 9.3 fL (9.4-12.4); Mono%MD 4.9 %; Neut%MD 74.8 %; Platelet Count 245 X10*3/uL (160-400); Red Blood Count 5.17 X10*6/uL (4.60-5.80); White Blood Count 12.7 X10*3/uL (4.8-10.8)
[2022-06-19 12:43] LABS: Appearance Urine Cloudy; Color Urine Dark Yellow; Glucose Urine UA Negative (Negative); Leukocyte Esterase Urine Negative (Negative); Nitrite Urine Negative (Negative); PH 5.5 (5.0-9.0); Specific Gravity - Urine >= 1.030 (1.005-1.025); UMIC TRIGGER UACC YES; Urine Blood Moderate (2+) (Negative); Urine Ketones Trace mg/dL (Negative); Urine Protein 30 (1+) mg/dL (Neg-Trace)
[2022-06-19 12:47] LABS: Bacteria Urine None Seen (None Seen); Hyaline Casts Urine 0-2 /LPF (0-2); RBC Urine >20 /HPF (0-2); WBC Urine 0-5 /HPF (0-5)
[2022-06-19 12:58] LABS: Alanine Aminotransferase 46 U/L (0-40); Albumin Level 4.2 g/dL (3.5-5.0); Alkaline Phosphatase 71 U/L (39-117); Anion Gap 11 (12-20); Aspartate Amino Transferase 33 U/L (5-37); Bilirubin Direct 0.2 mg/dL (0.0-0.5); Bilirubin Total 0.7 mg/dL (0.0-1.0); Blood Urea Nitrogen 10 mg/dL (9-16); Calcium 9.6 mg/dL (8.4-10.2); Carbon Dioxide 26 mmol/L (22-29); Chloride 107 mmol/L (96-108); Creatinine Clr Calc Pharmacy 167.1; Estimated Glomerular Filt Rate > 60; Glucose Random 110 mg/dL (60-115); Lipase 20 U/L (8-78); Potassium 4.2 mmol/L (3.3-5.1); Sodium 140 mmol/L (135-145); Total Protein 7.1 g/dL (6.5-8.0)
[2022-06-19 13:31] LABS: Band Neutrophils Percent 4 % (3-5); Basophils Abs Manual 0.1 X10*3/uL (0.0-0.2); Basophils Percent Manual 1 % (0-2); Eosinophils Absolute Manual 0.1 X10*3/uL (0.0-0.4); Eosinophils Percent Manual 1 % (0-4); Lymphocytes Absolute Manual 1.7 X10*3/uL (1.2-4.9); Lymphocytes Percent Manual 13 % (20-40); Monocytes Absolute Manual 1.1 X10*3/uL (0.1-1.2); Monocytes Percent Manual 9 % (2-11); Neutrophils Absolute Manual 9.7 X10*3/uL (2.0-8.3); Neutrophils Percent Manual 72 % (45-73)
[2022-06-19 13:32] LABS: Platelet Estimate NORMAL (NORMAL); Platelet Morphology Comment NORMAL; RBC Morphology NORMAL
[2022-06-19 19:33] VITALS: BP 156/82; PULSE 78; RESP 16; O2SAT 98
== END 2022-06-19 20:25 | disposition home or self-care (01) ==
PROVIDERS: Emergency Provider Emergency Medicine Emergency Medical Services; PCP Internal Medicine
DX: N13.2 Hydronephrosis with renal and ureteral calculous obstruction (principal); N50.812 Left testicular pain; E66.01 Morbid (severe) obesity due to excess calories; Z68.43 Body mass index [BMI] 50.0-59.9, adult
CPT/HCPCS: 36415; 74176; 76870; 80048; 80076; 81001; 83690; 85007; 85027; 93975; 99283; 99284

== ENCOUNTER → 2022-07-02 11:47 | Outpatient (BNVA) | payer OTHER, SELFPAY | PROVIDERS: PCP Internal Medicine; Visit Provider Nurse Practitioner Family | DX: N20.0 Calculus of kidney (principal); N13.30 Unspecified hydronephrosis; N44.00 Torsion of testis, unspecified | CPT/HCPCS: 99202 ==

== ENCOUNTER 2022-07-21 16:25 | Outpatient (REF) | payer OTHER, SELFPAY ==
--- NOTE | ~2022-07-21 | US_ITS ---
EXAMINATION: US RETROPERITONEAL LIMITED (RENAL ONLY) CLINICAL INFORMATION: Calculus of kidney. Assess for resolution of left-sided hydronephrosis on previous CT from ED. COMPARISON: CT abdomen and pelvis 06/19/2022. Ultrasound abdomen complete 07/31/2016 and 09/27/2015. TECHNIQUE: Real-time imaging of the kidneys. FINDINGS: RIGHT KIDNEY: 11.8 x 5.3 x 5.4 cm (SAG x AP x TRV). The kidney is normal in size, contour, and echogenicity. Renal cortical thickness is normal. No calculi or focal parenchymal lesions. No hydronephrosis. LEFT KIDNEY: 13.0 x 6.1 x 5.6 cm (SAG x AP x TRV). The kidney is normal in size, contour, and echogenicity. Renal cortical thickness is normal. No calculi or focal parenchymal lesions. No hydronephrosis. There is mild pelvic fullness seen. US/US renal BI IMPRESSION: Unremarkable renal ultrasound except for mild pelvic fullness left kidney.
== END 2022-07-21 16:26 | disposition home or self-care (01) ==
LOC: HO.US 16:25
PROVIDERS: Visit Provider Nurse Practitioner Family
DX: N20.0 Calculus of kidney (principal); N13.30 Unspecified hydronephrosis
CPT/HCPCS: 76775

== ENCOUNTER → 2022-08-12 10:19 | Outpatient (BNVA) | payer OTHER, SELFPAY | PROVIDERS: PCP Internal Medicine; Visit Provider Nurse Practitioner Family | DX: N20.0 Calculus of kidney (principal); N28.89 Other specified disorders of kidney and ureter | CPT/HCPCS: 99212 ==

== ENCOUNTER 2023-03-08 14:50 | Outpatient (AMB) | payer OTHER, SELFPAY ==
--- NOTE | 2023-03-08 14:50 | A.OFFPC_ITS ---
Intake Visit Reasons: Cold/Flu symptoms 2 Negative Covid tests [employer] Required: No Accompanied by: Self / Same As Patient Allergies penicillin V Allergy (Unknown, Verified 03/08/23 15:30) ??? - has taken amoxicillin with no problems Penicillins [PENICILLINS] Allergy (Unknown, Verified 03/08/23 15:30) UNK Medication List - Last Reconciled 03/08/23 by Shaun Washburn MD azithromycin take 500 mg today (day 1), then 250 mg for 4 days (days 2-5) PO loratadine (Claritin) 10 mg PO DAILY Tobacco use date assessed: 03/08/23 Dental Screening Dental Screen Date: 03/08/23 Did you have a dental visit in the last 12 months?: Yes Did you have a dental problem in the last 6 months where you did not have access to dental care?: No Was dental information given to patient?: Patient has dentist HPI Cold/Flu symptoms 2 Negative Covid tests HPI Details Patient's follow-up visit / consultation today is done over the phone - this is a Telehealth visit Patient's current medications have been reviewed and verified with patient and / or caregiver / proxy and have been updated accordingly in the medication list Patient states that he started coming down with some COVID-like symptoms (cough and congestion, chills, headaches, sore throat and fatigue) about 4 days ago States that his symptoms got a lot worse over the next couple of days and he started feeling better around Wednesday of last week and thought that his symptoms are finally starting to clear up but states that he woke up this morning feeling bad again, with the aforementioned symptoms seemingly flaring up States that he did COVID testing at home a couple of times over the past weekend, with both COVID tests coming back negative Currently relates (+) chills and mild sore throat but denies any fever Relates increased headaches and has had increased cough and congestion at present; states that he coughs up some thick whitish phlegm at times and is concerned that with his symptoms flaring up, he may be coming down with some form of pneumonia He denies any chest pains or increased SOB No nausea/vomiting, no abdominal pain and no change in bowel habits noted [facility] Medical History Nephrolithiasis Memory loss of unknown cause Anxiety Constipation Hemorrhoids Insomnia Morbid obesity with BMI of 50.0-59.9, adult Vitamin D deficiency Hyperlipidemia Surgical History Testicular torsion History of wisdom tooth extraction Family History Father Hyperlipidemia Paroxysmal atrial fibrillation Mother Diabetes FH: mental illness Family/Other FH: mental illness Maternal Grandfather Alzheimer's dementia Paternal Grandfather Skin cancer Paternal Uncle Multiple sclerosis Social History Housing: Apartment Alcohol intake: never Patient Tobacco Use Status: Never used Tobacco e-Cigarette/Vaping Use: Never Used Second Hand Smoke Exposure: Yes service: No Current occupational status: employed Cognitive needs: No Hearing needs: No Vision needs: Yes Questionnaire PHQ-9 Over the last 2 weeks, how often have you been bothered by any of the following problems? 1. Little interest or pleasure in doing things: several days 2. Feeling down, depressed, or hopeless: several days 3. Trouble falling or staying asleep, or sleeping too much: several days 4. Feeling tired or having little energy: several days 5. Poor appetite or overeating: several days 6. Feeling bad about yourself - or that you are a failure or have let yourself or your family down: several days 7. Trouble concentrating on things, such as reading the newspaper or watching television: several days 8. Moving or speaking so slowly that other people could have noticed. Or the opposite - being so fidgety or restless that you have been moving around a lot more than usual: several days 9. Thoughts that you would be better off or of hurting yourself in some way: several days Total score: 9 Depression Screening Interpretation: Positive Depression Screening Follow-up: Existing condition and Declines treatment Depression Screening Done: Yes 20151 - PHQ-9 Billing: Yes Source: Developed by Drs. Amilcar Mccollum, Mirta Sanchez, Gallo Mcneil and colleagues, with an educational debora from [employer]. Thrive Questionnaire Date Thrive assessed: 03/08/23 I am a: Patient What is your living situation today?: I have a steady place to live Within the past 12 months, did the food you bought not last and you didn't have the money to get more?: Never true Within the past 12 months, did you worry whether your food would run out before you got money to buy more?: Never true Do you have trouble paying for medicines?: No Do you have trouble getting transportation to medical appointments?: No Do you have trouble paying your heating and electricity bill?: No Do you have trouble taking care of your child, family member or friend?: No Do you have trouble with day-to-day activities such as bathing, preparing meals, shopping, managing finances, etc.?: No Are you currently unemployed and looking for a job?: No Are you interested in more education?: No Please select the resources that you would like help with: None Currently or been in a relationship where the following occur: no concerns reported AUDIT C Alcohol Use Questionnaire (AUDIT-C) 1. How often do you have a drink containing alcohol?: Never 3. How often do you have six or more drinks on one occasion?: Never Total Score: 0 Score Reviewed/Action Taken: Yes LJ-7 AMB Questionnaire LJ-7 Date LJ - 7 assessed: 03/08/23 Feeling nervous, anxious, or on edge: 1 = Several days Not being able to stop or control worryin = More than half the days Worrying too much about different things: 2 = More than half the days Trouble relaxin = More than half the days Being so restless that it is hard to sit still: 1 = Several days Becoming easily annoyed or irritable: 1 = Several days Feeling afraid as if something awful might happen: 2 = More than half the days Total LJ-7 score (0-4 normal; 5-9 mild; 10-14 moderate; 15-21 severe): 11 Source: Developed by Drs. Amilcar Mccollum, Mirta Sanchez, Gallo Mcneil and colleagues, with an educational debora from [employer]. Review of Systems Const Reports chills (on and off), Reports fatigue, Denies fever(s) and Reports headache(s) (increased) ENT Denies otalgia, Reports headache(s) (increased), Denies hearing loss, Reports nasal congestion, Denies odynophagia, Denies sinus pain, Reports sinus pressure and Reports sore throat (mild) Card Denies chest pain, Denies palpitations and Denies dyspnea Resp Reports chest congestion, Reports cough (coughs up thick whitish phlegm at times, worse at night), Denies dyspnea and Denies wheezing GI Denies abdominal pain, Denies constipation, Denies heartburn, Denies diarrhea, Denies nausea, Denies odynophagia and Denies vomiting Denies dysuria, Denies nocturia and Denies urinary frequency Skin/Breast Denies rash Neuro Reports headache(s) (increased) Endo Reports fatigue and Denies palpitations Aller/Immun Denies wheezing Physical exam (Primary Care) Vital Signs: Physical examination is not performed as visit / consultation today is done over the phone - Telehealth visit All physical findings indicated here, if present, are as per patient's and / or caregivers / proxy's report Tobacco/Smoking Status: Tobacco use Status Tobacco use date assessed 03/08/23 03/08/23 14:52 Patient Tobacco Use Status Never used Tobacco 03/08/23 14:52 e-Cigarette/Vaping Use Never Used 03/08/23 14:52 PHQ-9: PHQ-9 Score PHQ-9: Total score 9 03/08/23 14:52 Depression Screening Interpretation: Positive Depression Screening Follow-up: Existing condition and Declines treatment Thrive Assessment: Date of Thrive Assessment Date Thrive assessed 03/08/23 03/08/23 14:52 Currently or been in a relationship where the following occur: no concerns reported Telehealth Telehealth Location of provider rendering services: practice address Location of patient: address on file Patient Identification confirmed using: Name, : Yes Telehealth method: voice only Patient verbally consented to treatment: Yes Patient verbally consented to billing insurance company: Yes Patient informed of any privacy concerns related to visit: Yes Minutes spent on Phone/Video with Pt.: 17 Assessment and Plan Assessment & Plan (1) Respiratory tract congestion with cough: Code(s): R05.8 - Other specified cough Plan: Patient reported testing negative twice on home COVID test kits over the past few days Will send him to the lab to check for the complete respiratory panel - advised that if he does not have COVID, he still could be dealing with either influenza or RSV Will start him empirically in the meantime on Azithromycin Advised that if he does not have any significant SOB, a chest x-ray may not be necessary at this time but he is advised to call if he does not experience any significant improvement of his symptoms over the course of the week Can take OTC Tylenol or Ibuprofen PRN for symptomatic relief Plan To return as scheduled in August 2023 for his next annual physical examination Orders: Orders SARS-CoV2/FLU/RSV Today R05.8 - Other specified cough Medications: New azithromycin take 500 mg today (day 1), then 250 mg for 4 days (days 2-5) PO 6 tabs 0RF Coding Level of Care Code Tele Est Pt Level 3 (16139) Diagnoses Respiratory tract congestion with cough R05.8
== END 2023-03-08 15:38 | disposition home or self-care (01) ==
LOC: HO.HMGH 14:50
PROVIDERS: PCP Internal Medicine; Visit Provider Internal Medicine
DX: R05.8 Other specified cough (principal)
CPT/HCPCS: 99213

== ENCOUNTER 2023-06-16 01:34 | Emergency (ER) | payer OTHER, SELFPAY ==
[2023-06-16 01:41] VITALS: BP 142/90; PULSE 120; O2SAT 97
[2023-06-16 01:57] VITALS: BP 141/95; PULSE 116; RESP 20; TEMP 39.3; O2SAT 95; BMI 56.9
[2023-06-16] MEDS: Acetaminophen 325 MG TABLET 975 MG PO (02:32)
[2023-06-16 02:47] LABS: Basophils Percent Auto 0.2 % (0-2); Eosinophils Absolute Auto 0.1 X10*3/uL (0.0-0.4); Eosinophils Percent Auto 0.9 % (0-4); Hematocrit 44.8 % (42.0-52.0); Hemoglobin 15.7 g/dl (14.0-18.0); Imm Gran Abs Auto 0.05 X10*3/uL (0.00-0.03); Imm Gran Pct Auto 0.5 % (0.0-0.4); Lymphocytes Absolute Auto 0.4 X10*3/uL (1.2-4.9); MANUAL DIFF FLAG SCAN; Mean Corpuscular Hemoglobin 29.8 pg (27.0-33.0); Mean Corpuscular Volume 85.2 fL (80.0-98.0); Mean Platelet Volume 9.1 fL (9.4-12.4); Monocytes Absolute Auto 0.2 X10*3/uL (0.1-1.2); Monocytes Percent Auto 1.8 % (2-11); Neutrophils Absolute Auto 8.9 x10*3/uL (2.0-8.3); Neutrophils Percent Auto 92.6 % (45-73); Platelet Count 145 X10*3/uL (160-400); Red Blood Count 5.26 X10*6/uL (4.60-5.80); Red Cell Distribution Width 13.5 % (11.0-16.0); SCAN SMEAR FLAG 1; White Blood Count 9.6 X10*3/uL (4.8-10.8)
[2023-06-16 02:49] LABS: SLIDE REVIEW VERIFIED
[2023-06-16 03:01] LABS: Alanine Aminotransferase 59 U/L (0-40); Albumin Level 3.9 g/dL (3.5-5.0); Alkaline Phosphatase 66 U/L (39-117); Anion Gap 13 (12-20); Aspartate Amino Transferase 46 U/L (5-37); Bilirubin Direct 0.3 mg/dL (0.0-0.5); Bilirubin Total 0.7 mg/dL (0.0-1.0); Blood Urea Nitrogen 8 mg/dL (9-16); Calcium 8.5 mg/dL (8.4-10.2); Carbon Dioxide 18 mmol/L (22-29); Chloride 104 mmol/L (96-108); Creatinine Clr Calc Pharmacy 165.4; Estimated Glomerular Filt Rate > 60; Glucose Random 136 mg/dL (60-115); Lipase 17 U/L (8-78); Potassium 2.8 mmol/L (3.3-5.1); Sodium 132 mmol/L (135-145); Total Protein 7.2 g/dL (6.5-8.0)
[2023-06-16 03:03] LABS: COVID-19 Test Negative (Negative); IDNOW Serial# 08D9AD1C; IDNOW Serial# 152EDE1D; Influenza A Negative (Negative); Influenza B2 Negative (Negative)
[2023-06-16 04:31] LABS: Magnesium 1.5 mg/dL (1.6-2.6)
[2023-06-16 04:41] VITALS: BP 100/62; PULSE 100; RESP 16; TEMP 37.3; O2SAT 95
[2023-06-16] MEDS: Magnesium Sulfate/H2O 2 GM/50 ML PIGGYBACK IV (04:59)
[2023-06-16] MEDS: Potassium Chloride ER 20 MEQ TAB.ER.PRT 60 MEQ PO (04:59)
[2023-06-16] MEDS: ondansetron HCL 4 MG/2 ML VIAL IVPUSH (05:18)
[2023-06-16] MEDS: Potassium Chloride/H20 10 MEQ/100 ML PIGGYBACK 100 MEQ IV ×2 (05:20→06:14)
[2023-06-16] MEDS: 0.9 % Sodium Chloride 1,000 ML 999 ML IV ×2 (05:22→08:01)
--- NOTE | 2023-06-16 06:26 | ED_ITS ---
HPI - Nausea/Vomiting/Diarrhea General Chief complaint: Abdominal Pain Stated complaint: n/v/d Time Seen by Provider: 06/16/23 05:54 Source: patient Mode of arrival: EMS History of Present Illness HPI Narrative: 33-year-old male with presentation suspected food poisoning after he ate at [employer] [place] on Wednesday and developed multiple episodes of nausea and vomiting with crampy abdominal discomfort and multiple episodes of diarrhea, patient thought he was getting somewhat better yesterday but then began having body aches and chills in continued diarrhea. Patient denies any blood in the diarrhea. Related Data Home Medications Medication Instructions Recorded Confirmed loratadine 10 mg tablet (Claritin) 10 mg PO DAILY 08/20/22 03/08/23 Previous Rx's Medication Instructions Recorded azithromycin 250 mg tablet See Rx Instructions PO .COMPLEX #6 03/08/23 tabs Allergies Allergy/AdvReac Type Severity Reaction Status Date / Time penicillin V Allergy Unknown ??? - has Verified 06/16/23 01:57 taken amoxicillin with no problems Penicillins [PENICILLINS] Allergy Unknown UNK Verified 06/16/23 01:57 Review of Systems 2 Review of Systems: Pertinent positives and negatives as stated in HPI PMFSH Past Medical History Source: nursing notes reviewed Medical History Nephrolithiasis Memory loss of unknown cause Anxiety Constipation Hemorrhoids Insomnia Morbid obesity with BMI of 50.0-59.9, adult Vitamin D deficiency Hyperlipidemia Surgical History Testicular torsion History of wisdom tooth extraction Family History Family History Father Hyperlipidemia Paroxysmal atrial fibrillation Mother Diabetes FH: mental illness Family/Other FH: mental illness Maternal Grandfather Alzheimer's dementia Paternal Grandfather Skin cancer Paternal Uncle Multiple sclerosis Social History Social History Housing: Apartment Alcohol intake: never Patient Tobacco Use Status: Never used Tobacco e-Cigarette/Vaping Use: Never Used Second Hand Smoke Exposure: Yes Advance Directives: No Advance Directives Information Provided: No service: No Current occupational status: employed Cognitive needs: No Hearing needs: No Vision needs: Yes Physical Exam 2 Vital Signs: Vital Signs: Last Vital Signs Temp 99.2 F 03/27/24 04:41 Pulse 100 06/16/23 04:41 Resp 16 06/16/23 04:41 BP 100/62 06/16/23 04:41 Pulse Ox 95 06/16/23 04:41 O2 Del Method Room Air 06/16/23 04:41 BMI result Body Mass Index 56.9 VITAL SIGNS: Reviewed. GENERAL: Elevated BMI, Well developed, well nourished, in no acute distress. HEAD: Normocephalic/atraumatic EYES: PERRLA, EOMI EARS: Ext canals without abnormality, TMs non-bulging and non-erythematous NOSE: Nares patent bilateral OROPHARYNX: no oral lesions noted, posterior pharynx clear and non-erythematous without noted tonsillar enlargement/erythema/exudates NECK: Supple, no adenopathy LUNGS: Normal breath sounds. No adventitious sounds or accessory muscle use. SpO2<95> CARDIOVASCULAR: Regular rate and rhythm without noted murmurs ABDOMEN: Soft, non-tender, non-distended with bowel sounds. MUSCULOSKELETAL: No tenderness, deformities, or effusions noted on gross inspection. EXTREMITIES: No cyanosis, clubbing or edema. SKIN: Inspection of the skin reveals no rashes NEUROLOGIC: Alert and oriented x 4. Strength and sensation to light touch were grossly intact x 4. Medications Administered Discontinued Medications Generic Name Dose Route Start Last Admin Trade Name Freq PRN Reason Stop Dose Admin Acetaminophen 975 mg 06/16/23 02:10 06/16/23 02:32 Acetaminophen 325 Mg Tablet PO 06/16/23 02:11 975 mg ONCE ONE Administration Magnesium Sulfate 2 gm in 50 mls @ 150 mls/hr 06/16/23 04:54 06/16/23 05:19 Magnesium Sulfate/H2o IV 06/16/23 05:13 Infused ONCE ONE Infusion Potassium Chloride 10 meq in 100 mls @ 100 mls/hr 06/16/23 05:00 06/16/23 06:14 Potassium Chloride/H20 IV 06/16/23 06:59 100 mls/hr Q1H FRANCISCO Administration Sodium Chloride 1,000 mls @ 999 mls/hr 06/16/23 05:00 06/16/23 05:22 Ns IV 06/16/23 06:00 999 mls/hr .Q1H1M FRANCISCO Administration Ondansetron HCl 4 mg 06/16/23 06:09 06/16/23 05:18 Ondansetron Hcl 4 Mg/2 Ml Vial IVPUSH 06/16/23 06:10 4 mg ONCE ONE Administration Potassium Chloride 60 meq 06/16/23 04:54 06/16/23 04:59 Potassium Chloride Er 20 Meq Tab.Er.Prt PO 06/16/23 04:55 60 meq ONCE ONE Administration Medical Decision Making Medical Decision Making [facility] Narrative: 33-year-old male with history and clinical presentation, DDX: Food poisoning, viral gastroenteritis, no clinical suspicion for acute appendicitis or cholecystitis. I reviewed all investigations and hematologic indices are negative for leukocytosis/anemia there is a new thrombocytopenia. Chemistry indices significant for low magnesium/low potassium, both of which were repleted with IV fluids as well. Patient also received acetaminophen, Zofran and 60 mEq of potassium chloride. Viral testing is negative for COVID-19/influenza. On re-evaluation patient is feeling somewhat better. Signed out to Dr Gaspar - Rpt BMP, UA, GI Panel Differential Diagnosis Differential Diagnoses: The differential diagnosis associated with the presentation includes Please see the discussion above Admission/Observation Consideration of admission/observation: Escalation of care including admission/observation considered Please see the discussion above Lab Data [facility] Lab Attestation statement: I reviewed the patient's lab results. Please see the discussion above 06/16/23 02:32 06/16/23 02:32 Labs: Lab Results 06/16/23 Range/Units 02:32 WBC 9.6 (4.8-10.8) X10*3/uL RBC 5.26 (4.60-5.80) X10*6/uL Hgb 15.7 (14.0-18.0) g/dl Hct 44.8 (42.0-52.0) % MCV 85.2 (80.0-98.0) fL MCH 29.8 (27.0-33.0) pg MCHC 35.0 (31.0-36.0) g/dl RDW 13.5 (11.0-16.0) % Plt Count 145 L D (160-400) X10*3/uL MPV 9.1 L (9.4-12.4) fL Immature Gran % (Auto) 0.5 H (0.0-0.4) % Neut % (Auto) 92.6 H (45-73) % Lymph % (Auto) 4.0 L (20-40) % [place] % (Auto) 1.8 L (2-11) % Eos % (Auto) 0.9 (0-4) % Baso % (Auto) 0.2 (0-2) % Lymph # (Auto) 0.4 L (1.2-4.9) X10*3/uL [place] # (Auto) 0.2 (0.1-1.2) X10*3/uL Eos # (Auto) 0.1 (0.0-0.4) X10*3/uL Baso # (Auto) 0.0 (0.0-0.2) X10*3/uL Abs Immat Gran (auto) 0.05 H (0.00-0.03) X10*3/uL Absolute Neuts (auto) 8.9 H (2.0-8.3) x10*3/uL Absolute Nucleated RBC 0.000 (0.0-0.012) X10*3/uL Nucleated RBC % (auto) 0.0 (0.0-0.2) /100WBC Smear Tech's Comments VERIFIED Sodium 132 L (135-145) mmol/L Potassium 2.8 L* (3.3-5.1) mmol/L Chloride 104 (96-108) mmol/L Carbon Dioxide 18 L (22-29) mmol/L Anion Gap 13 (12-20) BUN 8 L (9-16) mg/dL Creatinine 0.99 (0.5-1.4) mg/dL Estim Creat Clear Calc 165.4 Estimated GFR > 60 Random Glucose 136 H (60-115) mg/dL Calcium 8.5 D (8.4-10.2) mg/dL Magnesium 1.5 L (1.6-2.6) mg/dL Total Bilirubin 0.7 (0.0-1.0) mg/dL Direct Bilirubin 0.3 (0.0-0.5) mg/dL AST 46 H (5-37) U/L ALT 59 H (0-40) U/L Alkaline Phosphatase 66 (39-117) U/L Total Protein 7.2 (6.5-8.0) g/dL Albumin 3.9 (3.5-5.0) g/dL Lipase 17 (8-78) U/L COVID-19 (EMILIE) Negative (Negative) COVID-19 Clin Com See Note Influenza Type A (JACKELYN) Negative (Negative) Influenza Type B (JACKELYN) Negative (Negative) Influenza A & B Note See Note External Record Review External record reviewed: Outpatient record and Prior outpatient labs Critical Care Time Critical Care Time Critical Care Time: Yes Total Critical Care Time: 45 Attestation: I personally attest to this time spent taking care of the patient. Discharge Plan Discharge Clinical Impression: Hypokalemia, Dehydration, Hypomagnesemia Patient Disposition: Still a Patient Instructions: Potassium Content of Foods List (ED), Hypokalemia (ED), Hypomagnesemia (ED) Prescriptions: No Action loratadine [Claritin] 10 mg tablet 10 mg PO DAILY azithromycin 250 mg tablet See Rx Instructions PO .COMPLEX Qty: 6 0RF Rx Instructions: take 500 mg today (day 1), then 250 mg for 4 days (days 2-5) PO
[2023-06-16 07:42] LABS: Anion Gap 14 (12-20); Blood Urea Nitrogen 9 mg/dL (9-16); Calcium 8.3 mg/dL (8.4-10.2); Carbon Dioxide 18 mmol/L (22-29); Chloride 105 mmol/L (96-108); Creatinine Clr Calc Pharmacy 162.2; Estimated Glomerular Filt Rate > 60; Glucose Random 140 mg/dL (60-115); Potassium 3.2 mmol/L (3.3-5.1); Sodium 134 mmol/L (135-145)
[2023-06-16 08:02] VITALS: BP 113/74; PULSE 92; RESP 20; TEMP 37.2; O2SAT 94
--- NOTE | 2023-06-16 08:02 | PC.NURSE ---
Resumed care of patient at 0700, no complaints of pain at this time, IVF hanging per order. Awaiting dispo at this time, pt reporting he is starting to feel slightly better
[2023-06-16 09:03] LABS: Appearance Urine Clear; Color Urine Yellow; Glucose Urine UA Negative (Negative); Leukocyte Esterase Urine Negative (Negative); Nitrite Urine Negative (Negative); PH 5.5 (5.0-9.0); Specific Gravity - Urine 1.015 (1.005-1.025); Urine Blood Negative (Negative); Urine Ketones Negative (Negative); Urine Protein Trace mg/dL (Neg-Trace)
[2023-06-16 10:06] LABS: CDiff Gene PCR NEGATIVE (Negative)
[2023-06-16 10:45] LABS: Adenovirus F 40/41 Not Detected (Not Detect.); Astrovirus Not Detected (Not Detect.); Campylobacter Not Detected (Not Detect.); Cryptosporidium Not Detected (Not Detect.); Cyclospora cayetanensis Not Detected (Not Detect.); E. coli EAEC Not Detected (Not Detect.); E. coli EPEC Not Detected (Not Detect.); E. coli ETEC Not Detected (Not Detect.); E. coli STEC Not Detected (Not Detect.); Entamoeba histolytica Not Detected (Not Detect.); Giardia lamblia Not Detected (Not Detect.); Norovirus GI/GII Not Detected (Not Detect.); Plesiomonas shigelloides Not Detected (Not Detect.); Rotavirus A Detected (Not Detect.); Salmonella Not Detected (Not Detect.); Sapovirus Not Detected (Not Detect.); Shigella sp./EIEC Not Detected (Not Detect.); Vibrio Not Detected (Not Detect.); Vibrio Cholerae Not Detected (Not Detect.); Yersinia enterocolitica Not Detected (Not Detect.)
[2023-06-16 11:34] VITALS: BP 135/77; PULSE 87; RESP 20; TEMP 37.2; O2SAT 97
== END 2023-06-16 11:51 | disposition home or self-care (01) ==
PROVIDERS: Student in an Organized Health Care Education/Training Program; Emergency Provider Emergency Medicine Emergency Medical Services; PCP Internal Medicine
DX: E87.6 Hypokalemia (principal); E86.0 Dehydration; E83.42 Hypomagnesemia; R11.2 Nausea with vomiting, unspecified; R19.7 Diarrhea, unspecified
CPT/HCPCS: 36415; 80048; 80053; 81003; 82248; 83690; 83735; 85025; 87493; 87502; 87507; 87635; 96361; 96365; 96375; 99285; J2405; J3475; J3480

== ENCOUNTER 2023-08-13 13:33 | Outpatient (REF) | payer OTHER, SELFPAY ==
--- NOTE | ~2023-08-13 | US_ITS ---
EXAMINATION: US RETROPERITONEAL LIMITED (RENAL ONLY) CLINICAL INFORMATION: Calculus of kidney. COMPARISON: Renal ultrasound 07/21/2022. CT abdomen and pelvis 06/19/2022. Ultrasound abdomen complete 07/31/2016. TECHNIQUE: Real-time imaging of the kidneys. FINDINGS: RIGHT KIDNEY: 12.9 x 5.6 x 5.6 cm (SAG x AP x TRV). The kidney is normal in size, contour, and echogenicity. Renal cortical thickness is normal. No calculi or focal parenchymal lesions. No hydronephrosis. LEFT KIDNEY: 12.3 x 5.9 x 5.3 cm (SAG x AP x TRV). The kidney is normal in size, contour, and echogenicity. Renal cortical thickness is normal. No calculi or focal parenchymal lesions. No hydronephrosis. Mild fullness of the renal pelvis. US/US renal BI IMPRESSION: 1. Normal appearance of the right kidney. Mild fullness of the left renal pelvis without carmen hydronephrosis.
== END 2023-08-13 13:34 | disposition home or self-care (01) ==
LOC: HO.US 13:33
PROVIDERS: PCP Internal Medicine; Visit Provider Nurse Practitioner Family
DX: N20.0 Calculus of kidney (principal)
CPT/HCPCS: 76775

== ENCOUNTER 2023-10-19 11:25 | Outpatient (AMB) | payer OTHER, SELFPAY ==
--- NOTE | 2023-10-19 11:53 | MHC.OFFVIS ---
Intake Visit Reasons: follow up/US(set) Intake Note: Patient presents today for follow up on: Kidney Stones Imagin08/13/23 Urology Medications: none Blood Thinner: none Maintenance Of Way Superintendent Required: No Accompanied by: Self / Same As Patient Allergies penicillin V Allergy (Unknown, Verified 10/19/23 20:51) ??? - has taken amoxicillin with no problems Penicillins [PENICILLINS] Allergy (Unknown, Verified 10/19/23 20:51) UNK Medication List - Last Reconciled 10/19/23 by KIKO Zhu No Known Home Meds HPI Comments Details: Daniele is a pleasant 33-year-old male patient of Dr. Washburn. He has a past medical history of nephrolithiasis, anxiety, constipation, hemorrhoids, insomnia, morbid obesity, vitamin-D deficiency, and hyperlipidemia. Patient presents to the office today for a follow up of his nephrolithiasis. Recent renal imaging results reviewed with the patient today. Bilateral kidneys with no calculi, lesions, and or hydronephrosis. Mild left fullness of the renal pelvis again noted. Normal appearance of the kidneys. When asked patient reports to be doing and feeling well. He denies any urological issues or concerns at this time. When asked he denies urinary urgency, urinary frequency, incontinence, nocturia, hematuria, dysuria, foul-smelling urine, changes to urinary stream, flank pain, fever, and or chills. He reports he is currently happy with his voiding parameters. He does discussed and inquire for possible circumcision. Information provided. He otherwise offers no other issues or concerns at this time. [facility] Medical History Nephrolithiasis Memory loss of unknown cause Anxiety Constipation Hemorrhoids Insomnia Morbid obesity with BMI of 50.0-59.9, adult Vitamin D deficiency Hyperlipidemia Surgical History Testicular torsion History of wisdom tooth extraction Family History Father Hyperlipidemia Paroxysmal atrial fibrillation Mother Diabetes FH: mental illness Family/Other FH: mental illness Maternal Grandfather Alzheimer's dementia Paternal Grandfather Skin cancer Paternal Uncle Multiple sclerosis Social History Housing: Apartment Alcohol intake: never Patient Tobacco Use Status: Never used Tobacco e-Cigarette/Vaping Use: Never Used Second Hand Smoke Exposure: Yes service: No Current occupational status: employed Cognitive needs: No Hearing needs: No Vision needs: Yes Review of Systems Const All systems reviewed & are unremarkable except as noted in HPI and below Physical Exam Const General: cooperative, healthy appearing, comfortable, no acute distress, well developed, alert and awake Nutritional Appearance: overweight Orientation/consciousness: patient oriented x3 Limitations: no limitations HEENT Head: Yes normal to inspection, Yes normocephalic and Yes atraumatic Ears: hearing grossly normal bilaterally Eyes General: appearance normal, both eyes and all related structures Neck Neck: Yes normal visual inspection and Yes trachea midline Chest Chest palpation & inspection: normal inspection of the chest Resp Effort & Inspection: normal respiratory effort and able to speak in complete sentences Cardio Rate: regular rate GI Inspection: Yes normal to inspection General: Yes no CVA tenderness Back/Spine/Pelvis Back: no CVA tenderness Skin General skin exam: no rashes or lesions noted Neuro General: patient oriented x3 Extrem General: Yes normal to inspection Psych Appearance: grossly normal and well kempt Mental Status: mental status grossly normal Speech and movement: Normal speech and movement present and Clear speech present Affect: normal affect Attitude: cooperative Thought process: Normal thought process present Thought content: Normal thought content present Insight: Fair insight present (Psych) Judgement: Fair judgement present (Psych) Results AMB Urinalysis, Automated UA Leukoctes 0 Meme/uL Last Edit by [employer] on 10/19/23 12:09 UA Nitrite Negative Last Edit by [employer] on 10/19/23 12:09 UA Urobilinogen 0.2 mg/dL Last Edit by [employer] on 10/19/23 12:09 UA Protein 15 mg/dL Last Edit by [employer] on 10/19/23 12:09 UA pH 6.0 Last Edit by [employer] on 10/19/23 12:09 UA Blood 0 Prince/uL Last Edit by [employer] on 10/19/23 12:09 UA Specific [place] 1.025 Last Edit by [employer] on 10/19/23 12:09 UA Ketone Negative Last Edit by Arturo Ibarra on 10/19/23 12:09 UA Bilirubin 1 mg/dL Last Edit by Arturo Ibarra on 10/19/23 12:09 UA Glucose 0 mg/dL Last Edit by Arturo Ibarra on 10/19/23 12:09 Results Reviewed Results Reviewed: Laboratory Last Values Urine pH (Auto) 6.0 10/19/23 12:06 Specific [place] (Auto) 1.025 10/19/23 12:06 Urine Protein (Auto) 15 mg/dL 10/19/23 12:06 Glucose (UA)(Auto) 0 mg/dL 10/19/23 12:06 Urine Ketones (Auto) Negative 10/19/23 12:06 Urine Blood (Auto) 0 Prince/uL 10/19/23 12:06 Urine Nitrite (Auto) Negative 10/19/23 12:06 Urine Bilirubin (Auto) 1 mg/dL 10/19/23 12:06 Urine Urobilinogen (Auto) 0.2 mg/dL 10/19/23 12:06 Leukocyte Esterase (Auto) 0 Meme/uL 10/19/23 12:06 Date of Service: 08/13/23 EXAMINATION: US RETROPERITONEAL LIMITED (RENAL ONLY) FINDINGS: RIGHT KIDNEY: 12.9 x 5.6 x 5.6 cm (SAG x AP x TRV). The kidney is normal in size, contour, and echogenicity. Renal cortical thickness is normal. No calculi or focal parenchymal lesions. No hydronephrosis. LEFT KIDNEY: 12.3 x 5.9 x 5.3 cm (SAG x AP x TRV). The kidney is normal in size, contour, and echogenicity. Renal cortical thickness is normal. No calculi or focal parenchymal lesions. No hydronephrosis. Mild fullness of the renal pelvis. IMPRESSION: 1. Normal appearance of the right kidney. Mild fullness of the left renal pelvis without carmen hydronephrosis. Assessment & Plan Assessment & Plan (1) Multiple punctate calcifications of kidney: Code(s): N28.89 - Other specified disorders of kidney and ureter Category: Medical Plan In office urinalysis results reviewed with the patient today. Recent renal ultrasound results reviewed with the patient today. Discussed, educated, encouraged on the importance of drinking adequate amount of water daily. Discussed adding 1 oz of lemon juice to water daily. Patient denies any urological issues or concerns at this time. He reports be happy with current voiding parameters. Information provided regarding circumcision. All questions were answered Follow-up in 1 year with imaging to be completed prior; or sooner with any issues, concerns, and or questions. Orders: Orders AMB Urinalysis Automated Today Z13.9 - Encounter for screening, unspecified US renal BI 1 Year N20.0 - Calculus of kidney Patient Instructions: The patient had an opportunity to ask questions regarding the treatment plan. All questions were answered. Physical exam, labs, and imaging were discussed and reviewed in detail. As well as risks, benefits, and discussion of treatment choices. No major barriers to understanding were identified. The patient expressed understanding and agreement with the above treatment plan. The patient was made aware they should contact our office by phone for worsening of their current condition, the appearance of new symptoms, or with any questions or concerns. Compliance is encouraged with any medications and follow up testing that is ordered. It is a privilege to be allowed the opportunity to participate in? your urological care.? Again, if you have any questions or concerns If you have any questions or concerns please do not hesitate to contact me. The office is [phone]. This note is constructed using voice recognition software. While every effort has been made to ensure accuracy lace winder errors may have been included. Yours sincerely, KIKO Zhu Coding Level of Care Code Est Pt Level 3 (66080) Diagnoses Multiple punctate calcifications of kidney N28.89
== END 2023-10-19 12:17 | disposition home or self-care (01) ==
PROVIDERS: PCP Internal Medicine; Visit Provider Nurse Practitioner Family
DX: Z13.9 Encounter for screening, unspecified (principal); N28.89 Other specified disorders of kidney and ureter
CPT/HCPCS: 99213

== ENCOUNTER → 2023-10-19 11:25 | Outpatient (BNVA) | payer OTHER, SELFPAY | PROVIDERS: PCP Internal Medicine; Visit Provider Nurse Practitioner Family | DX: N28.89 Other specified disorders of kidney and ureter (principal) | CPT/HCPCS: 81003; 99212 ==

== ENCOUNTER 2023-11-01 11:24 | Outpatient (AMB) | payer OTHER, SELFPAY ==
--- NOTE | 2023-11-01 11:27 | A.OFFPC_ITS ---
Vital Signs 11/01/23 11:28 Height 5 ft 9 in Weight 391 lb 0.4 oz BMI 57.7 BP 130/84 Blood Pressure Location Lt brachial Position Sitting Pulse 83 Pulse Source Pulse Oximeter Pulse Oximetry (%) 97 Oxygen Delivery Method Room Air Intake Visit Reasons: Abdomen pain, lower back pain, Blood in urine Intake Note: pt c/o blood in urine, lower back pain, and abdomen pain X4days Elevator Dispatcher Required: No Allergies penicillin V Allergy (Unknown, Verified 11/01/23 11:28) ??? - has taken amoxicillin with no problems Penicillins [PENICILLINS] Allergy (Unknown, Verified 11/01/23 11:28) UNK Medication List - Last Reconciled 11/01/23 by Maty Sparks PA-C sulfamethoxazole-trimethoprim 800-160 mg (Bactrim DS) 1 tab PO BID 7 days Tobacco use date assessed: 11/01/23 Dental Screening Dental Screen Date: 11/01/23 HPI Abdomen pain, lower back pain, Blood in urine HPI Details 33-year-old male with past medical histo ry hyperlipidemia, vitamin-D deficiency, and hydronephrosis last seen by Dr. Washburn February 2023 coming in for acute visit.? In review of the notes, patient was seen by Urology 10/19/2023 on imaging patient did not have any calculi, lesions, or hydronephrosis.? Patient was [place] [facility] [place] for evaluation of nausea and vomiting was found to be positive for rotavirus and discharged home with Zofran and Imodium. Today he tells us he started having right-sided low back pain with trouble walking and suprapubic pain which started 2-3 days ago. He mentions he did try to masturbate 2 days ago and was unable to ejaculate and instead blood came out. He continued to have small amounts of blood throughout the day and did find possible kidney stone debris on his hands after cleaning his penis. He also mentions he has been feeling warm without chills or documented fever. [facility] Medical History Nephrolithiasis Memory loss of unknown cause Anxiety Constipation Hemorrhoids Insomnia Morbid obesity with BMI of 50.0-59.9, adult Vitamin D deficiency Hyperlipidemia Surgical History Testicular torsion History of wisdom tooth extraction Family History Father Hyperlipidemia Paroxysmal atrial fibrillation Mother Diabetes FH: mental illness Family/Other FH: mental illness Maternal Grandfather Alzheimer's dementia Paternal Grandfather Skin cancer Paternal Uncle Multiple sclerosis Social History Housing: Apartment Alcohol intake: never Patient Tobacco Use Status: Never used Tobacco e-Cigarette/Vaping Use: Never Used Second Hand Smoke Exposure: Yes service: No Current occupational status: employed Cognitive needs: No Hearing needs: No Vision needs: Yes Questionnaire Thrive Questionnaire Date Thrive assessed: 11/01/23 I am a: Patient What is your living situation today?: I have a steady place to live Within the past 12 months, did the food you bought not last and you didn't have the money to get more?: Never true Within the past 12 months, did you worry whether your food would run out before you got money to buy more?: Never true Do you have trouble paying for medicines?: No Do you have trouble getting transportation to medical appointments?: No Do you have trouble paying your heating and electricity bill?: No Do you have trouble taking care of your child, family member or friend?: No Do you have trouble with day-to-day activities such as bathing, preparing meals, shopping, managing finances, etc.?: No Are you currently unemployed and looking for a job?: No Are you interested in more education?: No Please select the resources that you would like help with: None THRIVE Score: 0 AUDIT C Alcohol Use Questionnaire (AUDIT-C) 1. How often do you have a drink containing alcohol?: Never 3. How often do you have six or more drinks on one occasion?: Never Total Score: 0 Score Reviewed/Action Taken: Yes LJ-7 AMB Questionnaire LJ-7 Date LJ - 7 assessed: 11/01/23 Source: Developed by Drs. Amilcar Mccollum, Mirta Sanchez, Gallo Mcneil and colleagues, with an educational debora from [employer]. Review of Systems Const Denies body aches, Denies chills, Reports fever(s) (Feeling warm), Denies headache(s) and Denies poor appetite Eyes Reports no additional complaints ENT Denies dizziness and Denies headache(s) Card Denies chest pain, Reports lightheadedness and Denies dyspnea Resp Denies dyspnea GI Reports abdominal pain (Suprapubic pain), Denies nausea and Denies vomiting Reports as per HPI Musc Reports no additional complaints and Denies abnormal gait Skin/Breast Reports system reviewed and no additional complaints, except as documented Neuro Denies abnormal gait, Denies dizziness and Denies headache(s) Psych Reports no additional complaints Physical exam (Primary Care) Vital Signs: Last Vital Signs Pulse 83 11/01/23 11:28 BP 130/84 11/01/23 11:28 Pulse Ox 97 11/01/23 11:28 Oxygen Delivery Method Room Air 11/01/23 11:28 BMI result Body Mass Index 57.7 Tobacco/Smoking Status: Tobacco use Status Tobacco use date assessed 11/01/23 11/01/23 11:30 Patient Tobacco Use Status Never used Tobacco 11/01/23 11:27 e-Cigarette/Vaping Use Never Used 11/01/23 11:27 Thrive Assessment: Date of Thrive Assessment Date Thrive assessed 11/01/23 11/01/23 11:30 Const General: cooperative, healthy appearing, comfortable and no acute distress Orientation/consciousness: patient oriented x3 HENMT Head: Yes normocephalic Ears: hearing grossly normal bilaterally General nose exam: Normal external nose present Eyes General: appearance normal, both eyes and all related structures Conjunctivae: conjunctivae normal Neck Neck: Yes full ROM and Yes no lymphadenopathy Resp Effort & Inspection: normal respiratory effort Auscultation: clear to auscultation bilaterally, no crackles, no rales, no rhonchi and no wheezes Cardio Rate: regular rate Rhythm: regular rhythm GI Palpation (GI): Soft to palpation, not firm, nontender, no guarding, not rigid and No Rebound tenderness present Other: No pain to palpation of suprapubic area General: Yes CVA tenderness on the right Back/Spine/Pelvis Back: CVA tenderness Skin General skin exam: no rashes or lesions noted Neuro General: patient oriented x3 Gait exam (Neuro): Normal gait present Extrem General: Yes normal to inspection, Yes full ROM and No edema Psych Affect: normal affect Attitude: cooperative Insight: Good insight present (Psych) Judgement: Good judgement present (Psych) Results AMB Urinalysis Dipstick UR Leukocytes Medium Last Edit by Chari Malloypastora VESNA on 11/01/23 11:47 UR Nitrite Negative Last Edit by Chari Malloypastora VESNA on 11/01/23 11:47 UR Urobilinogen 2 Last Edit by Chari Diaz VESNA on 11/01/23 11:47 UR Protein Negative Last Edit by Chari Miguelharpreet Evelyne on 11/01/23 11:47 UR Ph 6.0 Last Edit by Chari Malloypastora [facility] on 11/01/23 11:47 UR Blood Moderate Last Edit by Chari Malloypastora [facility] on 11/01/23 11:47 UR Specific [place] 1.025 Last Edit by Chari Miguelharpreet Evelyne on 11/01/23 11:47 UR Ketone Small Last Edit by Chari Miguelharpreet Evelyne on 11/01/23 11:47 UR Bilirubin Small Last Edit by Chari Joe, Evelyne on 11/01/23 11:47 UR Glucose Negative Last Edit by Chari Malloypastora Evelyne on 11/01/23 11:47 Assessment and Plan Assessment & Plan (1) Hematuria: Code(s): R31.9 - Hematuria, unspecified Plan: Patient has been having hematuria for the past 2-3 days. Evidence of hematuria on in office urinalysis today along with leukocytes in the urine as well. He has been trying to reach Urology to make an appointment for this week. We will treat with Bactrim for 7 days empirically until culture comes back. Ordered for kidney and renal ultrasound which can be canceled at urology's discretion. Patient will continue to follow up with Urology and make an appointment as soon as possible. If symptoms worsen or do not improve please follow up with our office or go to the ER. Plan This note was constructed using voice recognition software. While every effort has been made to ensure accuracy and bed manager, still areas may have been included sometimes these areas may affect the content or meeting of the given symptoms. Total time spent caring for the patient today was 30 minutes. This includes time spent before the visit reviewing the chart, time spent during the visit, and time spent after the visit and documentation. Orders: Orders AMB Urinalysis Dipstick Today R31.9 - Hematuria, unspecified US renal BI Today R31.9 - Hematuria, unspecified US bladder Today R31.9 - Hematuria, unspecified Urine Culture Today R31.9 - Hematuria, unspecified Medications: New sulfamethoxazole-trimethoprim 800-160 mg (Bactrim DS) 1 tab PO BID 7 days 14 tabs 0RF Coding Level of Care Code Est Pt Level 4 (40910) Diagnoses Hematuria R31.9
[2023-11-01 11:28] VITALS: BP 130/84; PULSE 83; O2SAT 97; BMI 57.7
== END 2023-11-01 12:02 | disposition home or self-care (01) ==
PROVIDERS: PCP Internal Medicine
DX: R31.9 Hematuria, unspecified (principal)
CPT/HCPCS: 81002; 99214

== ENCOUNTER 2023-11-01 16:40 | Outpatient (REF) | payer OTHER, SELFPAY | END 2023-11-01 16:41 | disposition home or self-care (01) | LOC: HO.LNP 16:40 | DX: R31.9 Hematuria, unspecified (principal) | CPT/HCPCS: 87086 ==

== ENCOUNTER 2023-11-03 15:44 | Outpatient (REF) | payer OTHER, SELFPAY ==
--- NOTE | ~2023-11-03 | US_ITS ---
EXAMINATION: US RETROPERITONEAL COMPLETE (RENAL) CLINICAL INFORMATION: Calculus of kidney. COMPARISON: Renal ultrasound examinations dated 08/13/2023 and 07/21/2022; CT abdomen and pelvis dated 06/19/2022. TECHNIQUE: Real-time imaging of the kidneys and bladder. FINDINGS: RIGHT KIDNEY: 12.3 x 4.8 x 4.8 cm (SAG x AP x TRV). The kidney is normal in size, contour, and echogenicity. Renal cortical thickness is normal. No calculi or focal parenchymal lesions. No hydronephrosis. LEFT KIDNEY: 11.7 x 6.0 x 4.4 cm (SAG x AP x TRV). The kidney is normal in size, contour, and echogenicity. Renal cortical thickness is normal. No calculi or focal parenchymal lesions. There is pelviectasis, without carmen hydronephrosis. BLADDER: Well distended and normal. Right ureteral jet is demonstrated; left is not. Prevoid bladder volume is 277 mL. Postvoid bladder volume was not obtained. ADDITIONAL FINDINGS: Prostate dimensions are 3.1 x 3.1 x 2.7 cm (volume 13.6 mL). US/US retroperitoneal comp IMPRESSION: Unremarkable examination. Electronically signed by: Pancho Soto MD 11/24/2023 08:20 PM EDT
== END 2023-11-03 15:45 | disposition home or self-care (01) ==
LOC: HO.US 15:44
PROVIDERS: PCP Internal Medicine
DX: N20.0 Calculus of kidney (principal)
CPT/HCPCS: 76770

== ENCOUNTER 2023-12-28 11:26 | Outpatient (AMB) | payer OTHER, SELFPAY ==
[2023-12-28 11:27] VITALS: BP 138/80; PULSE 87; O2SAT 97; BMI 57.3
--- NOTE | 2023-12-28 11:27 | MHC.PC.OV ---
Vital Signs 12/28/23 11:27 Height 5 ft 9 in Weight 388 lb BMI 57.3 BP 138/80 Blood Pressure Location Lt brachial Position Sitting Pulse 87 Pulse Source Pulse Oximeter Pulse Oximetry (%) 97 Oxygen Delivery Method Room Air Intake Visit Reasons: 2 month follow up White Washer Required: No Allergies penicillin V Allergy (Unknown, Verified 12/28/23 11:27) ??? - has taken amoxicillin with no problems Penicillins [PENICILLINS] Allergy (Unknown, Verified 12/28/23 11:27) UNK Medication List - Last Reconciled 12/28/23 by Maty Sparks PA-C No Known Home Meds Tobacco use date assessed: 11/01/23 Dental Screening Dental Screen Date: 11/01/23 HPI 2 month follow up HPI Details 33-year-old male with past medical history of hyperlipidemia, vitamin-D deficiency, and hydronephrosis last seen October 2023 coming in for follow up. Today he tells us he is no longer having blood in the urine or with ejaculation. His retroperitoneal ultrasound was negative for any abnormality or renal calculi. He does mentioned he has been having right-sided mid to upper back pain for the last 2 months. Episodes last less than 1 minute and can happen anywhere from 0 to 2 times a day. [facility] Medical History Nephrolithiasis Memory loss of unknown cause Anxiety Constipation Hemorrhoids Insomnia Morbid obesity with BMI of 50.0-59.9, adult Vitamin D deficiency Hyperlipidemia Surgical History Testicular torsion History of wisdom tooth extraction Family History Father Hyperlipidemia Paroxysmal atrial fibrillation Mother Diabetes FH: mental illness Family/Other FH: mental illness Maternal Grandfather Alzheimer's dementia Paternal Grandfather Skin cancer Paternal Uncle Multiple sclerosis Social History Housing: Apartment Alcohol intake: never Patient Tobacco Use Status: Never used Tobacco e-Cigarette/Vaping Use: Never Used Second Hand Smoke Exposure: Yes service: No Current occupational status: employed Cognitive needs: No Hearing needs: No Vision needs: Yes Questionnaire Thrive Questionnaire Date Thrive assessed: 11/01/23 Are you currently unemployed and looking for a job?: No AUDIT C Alcohol Use Questionnaire (AUDIT-C) 1. How often do you have a drink containing alcohol?: Never 3. How often do you have six or more drinks on one occasion?: Never Total Score: 0 Score Reviewed/Action Taken: Yes LJ-7 AMB Questionnaire LJ-7 Date LJ - 7 assessed: 11/01/23 Source: Developed by Drs. Amilcar Mccollum, Mirta Sanchez, Gallo Mcneil and colleagues, with an educational debora from [employer]. Review of Systems Const Denies chills and Denies fever(s) Eyes Reports no additional complaints ENT Reports no additional complaints Card Denies chest pain, Denies leg edema, Denies lightheadedness and Denies dyspnea Resp Denies dyspnea GI Reports no additional complaints Denies hematospermia, Denies hematuria, Denies genital pain, Denies dysuria and Denies nocturia Musc Reports as per HPI Skin/Breast Reports system reviewed and no additional complaints, except as documented Psych Reports depression Physical exam (Primary Care) Vital Signs: Last Vital Signs Pulse 87 12/28/23 11:27 BP 138/80 12/28/23 11:27 Pulse Ox 97 12/28/23 11:27 Oxygen Delivery Method Room Air 12/28/23 11:27 BMI result Body Mass Index 57.3 Tobacco/Smoking Status: Tobacco use Status Tobacco use date assessed 11/01/23 12/28/23 11:30 Patient Tobacco Use Status Never used Tobacco 12/28/23 11:30 e-Cigarette/Vaping Use Never Used 12/28/23 11:30 Thrive Assessment: Date of Thrive Assessment Date Thrive assessed 11/01/23 12/28/23 11:30 Const General: cooperative, healthy appearing, comfortable and no acute distress Orientation/consciousness: patient oriented x3 HENMT Head: Yes normocephalic Ears: hearing grossly normal bilaterally General nose exam: Normal external nose present Eyes General: appearance normal, both eyes and all related structures Conjunctivae: conjunctivae normal Neck Neck: Yes full ROM and Yes no lymphadenopathy Resp Effort & Inspection: normal respiratory effort Auscultation: clear to auscultation bilaterally, no crackles, no rales, no rhonchi and no wheezes Cardio Rate: regular rate Rhythm: regular rhythm Back/Spine/Pelvis Other: mid back and right sided mid back tenderness to palpation Skin General skin exam: no rashes or lesions noted Neuro General: patient oriented x3 Gait exam (Neuro): Normal gait present Extrem General: Yes normal to inspection, Yes full ROM and No edema Psych Affect: normal affect Attitude: cooperative Insight: Good insight present (Psych) Judgement: Good judgement present (Psych) Office Procedures Flu Questionnaire Does the patient have a severe egg allergy?: No Does the patient have severe life threatening allergies?: No Does the patient have a fever or illness today?: No Has the patient ever had Guillain-[place] Syndrome?: No Has the patient ever had any past reaction to a flu shot?: No Immunizations Fluarix Triv [id number] (PF) 45 mcg (15 mcg x 3)/0.5 mL IM syringe Performing Provider: Maty Sparks PA-C Performing Location: [facility] [place] [facility] Administered by: VESNA Mireles on 12/28/23 11:36 Dose Route Admin Location Dispensed Lot Number Expiration Date [facility] Quality Control Systems Manager 0.5 mL IM Left Deltoid 0.5 mL [id number] 09/18/24 [id number] [place] VIS Given Date VIS Provided VIS Publication Date 12/28/23 Single Vaccine 20 Eligibility Eligibility Date Funding Source Not [facility] Eligible 12/28/23 Private Coding Level of Care Code Est Pt Level 3 (04675) Diagnoses Hematuria R31.9 Depression F32.A Mid back pain M54.9 Assessment & Plan Assessment & Plan (1) Hematuria: Code(s): R31.9 - Hematuria, unspecified Category: Medical Plan: Resolved at this time continue to monitor. (2) Depression: Code(s): F32.A - Depression, unspecified Category: Medical Plan: Patient recently lost his mother and has been facing depression and grief referral placed for counseling today. (3) Mid back pain: Code(s): M54.9 - Dorsalgia, unspecified Category: Medical Plan: Declines imaging or PT at this time. Advised to stretch his back and may use tennis ball to roll out the muscle as needed. Rx given for lidocaine patch to be used as needed. Continue to monitor and follow up prn for this concern. Plan This note was constructed using voice recognition software. While every effort has been made to ensure accuracy and armature winder repair, still areas may have been included sometimes these areas may affect the content or meeting of the given symptoms. Total time spent caring for the patient today was 30 minutes. This includes time spent before the visit reviewing the chart, time spent during the visit, and time spent after the visit and documentation. Orders: Orders Influenza [id number] Immunization Today Z23 - Encounter for immunization Comprehensive Met. Panel Today Z00.00 - Encounter for general adult medical examination without abnormal findings Lipid Panel Today Z00.00 - Encounter for general adult medical examination without abnormal findings TSH reflex Free T4 Today Z00.00 - Encounter for general adult medical examination without abnormal findings Complete Blood Count Auto Diff Today Z00.00 - Encounter for general adult medical examination without abnormal findings Free T4 (Free Thyroxine) Today Z00.00 - Encounter for general adult medical examination without abnormal findings Vitamin B12 and Folate Today Z00.00 - Encounter for general adult medical examination without abnormal findings Vitamin D 25-OH (D2 and D3) Today Z00.00 - Encounter for general adult medical examination without abnormal findings UA CC w/rflx Micro + Cult Today R35.89 - Other polyuria Referrals Counseling Referral F32.A - Depression, unspecified, F41.9 - Anxiety disorder, unspecified Medications: New lidocaine 5% leave on most painful area for up to 12 hrs 1 patch topical DAILY 30 ea 0RF
== END 2023-12-28 12:19 | disposition home or self-care (01) ==
PROVIDERS: PCP Internal Medicine
DX: R31.9 Hematuria, unspecified (principal); F32.A Depression, unspecified; M54.9 Dorsalgia, unspecified; Z23 Encounter for immunization

== ENCOUNTER → 2023-12-28 11:26 | Outpatient (BNVA) | payer OTHER, SELFPAY | PROVIDERS: PCP Internal Medicine | DX: R31.9 Hematuria, unspecified (principal); F32.A Depression, unspecified; M54.9 Dorsalgia, unspecified | CPT/HCPCS: 90471; 90656; 99212 ==

== ENCOUNTER 2024-05-01 12:26 | Outpatient (AMB) | payer OTHER, SELFPAY ==
[2024-05-01 12:32] VITALS: BP 138/82; PULSE 92; O2SAT 97; BMI 58.5
--- NOTE | 2024-05-01 12:32 | MHC.PC.OV ---
Vital Signs 05/01/24 12:32 Height 5 ft 9 in Weight 396 lb 6 oz BMI 58.5 BP 138/82 Blood Pressure Location Lt brachial Position Sitting Pulse 92 Pulse Source Pulse Oximeter Pulse Oximetry (%) 97 Oxygen Delivery Method Room Air Intake Visit Reasons: annual exam Cable Wirer Required: No Accompanied by: Self / Same As Patient Allergies penicillin V Allergy (Unknown, Verified 05/01/24 12:55) ??? - has taken amoxicillin with no problems Penicillins [PENICILLINS] Allergy (Unknown, Verified 05/01/24 12:55) UNK Medication List - Last Reconciled 05/01/24 by Shaun Washburn MD lidocaine 5% 1 patch topical DAILY Tobacco use date assessed: 05/01/24 Dental Screening Dental Screen Date: 05/01/24 Did you have a dental visit in the last 12 months?: No Did you have a dental problem in the last 6 months where you did not have access to dental care?: No Was dental information given to patient?: No HPI annual exam HPI Details Patient comes in today for his annual physical examination States that he started coming down with some symptoms of non-productive cough and mild congestion earlier today He denies any headaches or dizziness; denies any fever or sore throat Denies any chest pains, no SOB and he denies any chest congestion recently No nausea/vomiting, no abdominal pain No change in bowel habits noted Denies any acute urinary symptoms Adds that he is still struggling with his mother's passing last year and admits that his diet has not been that great over the past few months [facility] Medical History Nephrolithiasis Memory loss of unknown cause Anxiety Constipation Hemorrhoids Insomnia Morbid obesity with BMI of 50.0-59.9, adult Vitamin D deficiency Hyperlipidemia Surgical History Testicular torsion History of wisdom tooth extraction Family History Father Hyperlipidemia Paroxysmal atrial fibrillation Mother Diabetes FH: mental illness Family/Other FH: mental illness Maternal Grandfather Alzheimer's dementia Paternal Grandfather Skin cancer Paternal Uncle Multiple sclerosis Social History Housing: Apartment Alcohol intake: never Patient Tobacco Use Status: Never used Tobacco e-Cigarette/Vaping Use: Never Used Second Hand Smoke Exposure: Yes service: No Current occupational status: employed Cognitive needs: No Hearing needs: No Vision needs: Yes Questionnaire PHQ-9 Over the last 2 weeks, how often have you been bothered by any of the following problems? 1. Little interest or pleasure in doing things: several days 2. Feeling down, depressed, or hopeless: several days 3. Trouble falling or staying asleep, or sleeping too much: several days 4. Feeling tired or having little energy: several days 5. Poor appetite or overeating: nearly every day 6. Feeling bad about yourself - or that you are a failure or have let yourself or your family down: more than half the days 7. Trouble concentrating on things, such as reading the newspaper or watching television: nearly every day 8. Moving or speaking so slowly that other people could have noticed. Or the opposite - being so fidgety or restless that you have been moving around a lot more than usual: more than half the days 9. Thoughts that you would be better off or of hurting yourself in some way: not at all Total score: 14 Depression Screening Interpretation: Positive Depression Screening Follow-up: Existing condition and Community Mental Health Worker F/U Depression Screening Done: Yes 72377 - PHQ-9 Billing: Yes Source: Developed by Drs. Amilcar Mccollum, Mirta Sanchez, Gallo Mcneil and colleagues, with an educational debora from [employer]. Thrive Questionnaire Date Thrive assessed: 05/01/24 I am a: Patient What is your living situation today?: I have a steady place to live Within the past 12 months, did the food you bought not last and you didn't have the money to get more?: Sometimes True Within the past 12 months, did you worry whether your food would run out before you got money to buy more?: Never true Do you have trouble paying for medicines?: I choose not to answer this question Do you have trouble getting transportation to medical appointments?: Yes Do you have trouble paying your heating and electricity bill?: No Do you have trouble taking care of your child, family member or friend?: No Do you have trouble with day-to-day activities such as bathing, preparing meals, shopping, managing finances, etc.?: Yes Are you currently unemployed and looking for a job?: No Are you interested in more education?: Yes Please select the resources that you would like help with: Transportation, Daily support, Job search/training and Education Currently or been in a relationship where the following occur: No concerns reported THRIVE Score: 2 AUDIT C Alcohol Use Questionnaire (AUDIT-C) 1. How often do you have a drink containing alcohol?: Never 3. How often do you have six or more drinks on one occasion?: Never Total Score: 0 Score Reviewed/Action Taken: Yes LJ-7 AMB Questionnaire LJ-7 Date LJ - 7 assessed: 05/01/24 Feeling nervous, anxious, or on edge: 2 = More than half the days Not being able to stop or control worryin = More than half the days Worrying too much about different things: 2 = More than half the days Trouble relaxin = More than half the days Being so restless that it is hard to sit still: 2 = More than half the days Becoming easily annoyed or irritable: 2 = More than half the days Feeling afraid as if something awful might happen: 1 = Several days Total LJ-7 score (0-4 normal; 5-9 mild; 10-14 moderate; 15-21 severe): 13 Source: Developed by Drs. Amilcar Mccollum, Mirta Sanchez, Gallo Mcneil and colleagues, with an educational debora from [employer]. Review of Systems Const Denies chills, Denies fatigue, Denies fever(s), Denies headache(s), Denies malaise and Denies weakness Eyes Denies blurry vision, Denies change in vision, Denies irritation and Denies itchy eyes ENT Denies dysphagia, Denies dizziness, Denies otalgia, Denies headache(s), Reports nasal congestion (mild - just started this morning), Denies neck pain, Denies odynophagia and Denies sore throat Card Denies chest pain, Denies rapid heart rate, Denies irregular heart rhythm, Denies palpitations and Denies dyspnea Resp Denies chest congestion, Denies cough, Denies dyspnea and Denies wheezing GI Denies abdominal pain, Denies bloating, Denies constipation, Denies dysphagia, Denies heartburn, Denies diarrhea, Denies nausea, Denies odynophagia and Denies vomiting Denies hematuria, Denies difficulty urinating, Denies dysuria, Denies urinary frequency and Denies urinary urgency Musc Denies back pain, Denies arthralgias, Denies joint swelling, Denies muscle weakness and Denies neck pain Skin/Breast Denies change in pigmentation, Denies lesions, Denies rash and Denies unusual bruising Neuro Denies dizziness, Denies headache(s), Denies paresthesias and Denies weakness Psych Reports depression (still having trouble getting over his mother's passing last year) Endo Denies fatigue and Denies palpitations Aller/Immun Denies itchy eyes and Denies wheezing Physical exam (Primary Care) Vital Signs: Last Vital Signs Pulse 92 05/01/24 12:32 BP 138/82 05/01/24 12:32 Pulse Ox 97 05/01/24 12:32 Oxygen Delivery Method Room Air 05/01/24 12:32 BMI result Body Mass Index 58.5 Tobacco/Smoking Status: Tobacco use Status Tobacco use date assessed 05/01/24 05/01/24 12:39 Patient Tobacco Use Status Never used Tobacco 05/01/24 12:39 e-Cigarette/Vaping Use Never Used 05/01/24 12:39 PHQ-9: PHQ-9 Score PHQ-9: Total score 14 05/01/24 12:39 Depression Screening Interpretation: Positive Depression Screening Follow-up: Existing condition and Community Mental Health Worker F/U Thrive Assessment: Date of Thrive Assessment Date Thrive assessed 05/01/24 05/01/24 12:39 Currently or been in a relationship where the following occur: No concerns reported Const General: no acute distress, alert and awake Orientation/consciousness: patient oriented x3 HENMT Head: Yes normocephalic and Yes atraumatic Ears: external ears normal, TM's normal bilaterally and EAC's normal General nose exam: No nasal discharge present Face and sinus: Yes normal facial exam and Yes sinuses nontender Teeth and gingiva: dentition normal Throat: Yes posterior oropharynx normal and Yes tonsils normal (no TP congestion) Eyes Eyelids: Yes eyelids normal Conjunctivae: conjunctivae normal Pupils: Equal, round and reactive pupils present EOM: EOMs intact bilaterally Neck Neck: Yes no lymphadenopathy and Yes supple Thyroid: Thyroid normal Resp Auscultation: clear to auscultation bilaterally, no rales and no wheezes Cardio Rate: regular rate Rhythm: regular rhythm Heart sounds: no murmurs GI Palpation (GI): Soft to palpation, nontender and No hepatosplenomegaly present Auscultation: normal bowel sounds General: Yes no CVA tenderness Back/Spine/Pelvis Back: no CVA tenderness Thoracic/Lumbar Spine: thoracic and lumbar spine normal to inspection Skin Lesions: no lesions Rashes: no rashes Neuro General: patient oriented x3, moves all extremities, no focal motor deficits and CN's II-XI intact bilaterally Cranial nerves: Yes Equal, round and reactive pupils present Cognition (Neuro): normal cognition Gait exam (Neuro): Normal gait present Extrem General: Yes no clubbing, cyanosis or edema Coding Level of Care Code Est Pt Prev Care 18-39y(91158) Diagnoses Annual physical exam Z00.00 Pure hypercholesterolemia E78.00 Hyperlipidemia type: pure hypercholesterolemia Vitamin D deficiency E55.9 Constipation, unspecified constipation type K59.00 Constipation type: unspecified constipation type Nephrolithiasis N20.0 Primary insomnia F51.01 Insomnia type: primary Anxiety F41.9 Reactive depression F32.9 Depression Type: reactive depression Morbid obesity with BMI of 50.0-59.9, adult E66.01; Z68.43 Additional Codes PHQ-9 - 77346 - PHQ-9 Billing: Yes ([id number]) Assessment & Plan Assessment & Plan (1) Annual physical exam: Code(s): Z00.00 - Encounter for general adult medical examination without abnormal findings Category: Medical Plan: Check labs (2) Hyperlipidemia: Code(s): E78.5 - Hyperlipidemia, unspecified Category: Medical Qualifiers: Hyperlipidemia type: pure hypercholesterolemia Qualified Code(s): E78.00 - Pure hypercholesterolemia, unspecified Plan: Reinforced low cholesterol diet Will recheck his fasting lipids DEVAN for follow up (3) Vitamin D deficiency: Code(s): E55.9 - Vitamin D deficiency, unspecified Category: Medical Plan: Patient is currently not taking any Vitamin D supplements Will recheck his Vitamin D level for follow up (4) Constipation: Code(s): K59.00 - Constipation, unspecified Category: Medical Qualifiers: Constipation type: unspecified constipation type Qualified Code(s): K59.00 - Constipation, unspecified Plan: Patient is again ecouraged on increased oral fluids and dietary fiber to help manage his constipation better Continue OTC stool softeners as needed and OTC Miralax 17 gm QD Follow up with GI as scheduled (5) Nephrolithiasis: Code(s): N20.0 - Calculus of kidney Category: Medical Plan: Patient states that he was able to pass out his kidney stones with no surgical intervention required Encouraged increased oral fluids Renal US done last year was unremarkable except for some mild pelvic fullness in the left kidney; will have repeat US done in 1 year unless he develops acute symptoms Follow up with urology as scheduled (6) Insomnia: Code(s): G47.00 - Insomnia, unspecified Category: Medical Qualifiers: Insomnia type: primary Qualified Code(s): F51.01 - Primary insomnia Plan: Sleep hygiene reinforced (7) Anxiety: Code(s): F41.9 - Anxiety disorder, unspecified Category: Medical Plan: Follow up with psychiatry as scheduled Used to take Hydroxyzine PRN for anxiety but he prefers not taking any Rx at this time if possible (8) Depression: Code(s): F32.A - Depression, unspecified Category: Medical Qualifiers: Depression Type: reactive depression Qualified Code(s): F32.9 - Major depressive disorder, single episode, unspecified Plan: Patient states that he is still struggling over his mother's passing last year He declines offer to refer him for counseling or to start him on any Rx (9) Morbid obesity with BMI of 50.0-59.9, adult: Code(s): E66.01 - Morbid (severe) obesity due to excess calories; Z68.43 - Body mass index [BMI] 50.0-59.9, adult Category: Medical Plan: Reinforced diet/exercise as tolerated/lose weight - patient has gained a lot of weight since his last visit last year Plan Follow up in 6 months Orders: Orders Complete Blood Count Auto Diff Today D64.9 - Anemia, unspecified, Z00.00 - Encounter for general adult medical examination without abnormal findings Comprehensive [place]. Panel Fast Today E78.00 - Pure hypercholesterolemia, unspecified, Z00.00 - Encounter for general adult medical examination without abnormal findings Lipid Panel Today E78.00 - Pure hypercholesterolemia, unspecified, Z00.00 - Encounter for general adult medical examination without abnormal findings TSH reflex Free T4 Today E78.00 - Pure hypercholesterolemia, unspecified, Z00.00 - Encounter for general adult medical examination without abnormal findings Vitamin B12 and Folate Today E53.8 - Deficiency of other specified B group vitamins, Z00.00 - Encounter for general adult medical examination without abnormal findings UA CC w/rflx Micro + Cult Today R30.0 - Dysuria, Z00.00 - Encounter for general adult medical examination without abnormal findings Vitamin D 25-OH Total Today E55.9 - Vitamin D deficiency, unspecified, Z00.00 - Encounter for general adult medical examination without abnormal findings Hemoglobin A1c Today R73.9 - Hyperglycemia, unspecified, Z00.00 - Encounter for general adult medical examination without abnormal findings
--- OUTSIDE RECORDS SUMMARY | 2024-05-01 13:29 | XMS_ITS | Clinical Summary ---
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 Name Role Phone Unavailable Primary Care Provider Unavailabl e Immunizations Immunization Administration Dates Next Due DTP 09/18/1993, 0,1988,1988,1988 Hep B, ped/adol 07/25/2001,04/18/2001,03/02/2001 IPV 09/18/1993, 0,1988,1988 MMR 01/17/1998,08/09/1989 Td (adult) (MBL), 2 Lf tetan us toxoid, PF, adsorbed 09/08/2000 Td (adult) (Tenivac), 5 Lf t etanus toxoid, PF, adsorbed 11/18/1998 Family History Relation Name Status Comments Brother Brother: Killed in [place] august 24, , , Social History Tobacco Use Types Packs/Day Years Used Date Smoking Tobacco: Never Assessed Sex and Gender Information Value Date Recorded Sex Assigned at Not on file Legal Sex Male 4:36 PM EDT Gender Identity Not on file Sexual Orientation Not on file Plan of Treatment Health Maintenance Due Date Last Done Comments DTaP,Tdap,and Td Vaccines (6 - Tdap) 09/09/2000 09/08/2000, 11/18/1998, 09/18/1993, Additional history exists Varicella Vaccines (1 of 2 - 13+ 2-dose series) 2001 Influenza Vaccines (#1) 2023 COVID-19 Vaccine (1 - 2023- season) 2023 IPV Vaccines Completed 09/18/1993, 08/04/1989, 1988, Additional history exists MMR Vaccines Completed 01/17/1998, 08/09/1989 Hepatitis B Vaccines Completed 07/25/2001, 04/18/2001, 03/02/2001 HIB Vaccines Aged Out No longer eligi ble based on patient's age to complete this topic HPV Vaccines Aged Out No longer eligi ble based on patient's age to complete this topic Hepatitis A Vaccines Aged Out No long er eligible based on patient's age to complete this topic Men B Vaccine Aged Out No longer elig ible based on patient's age to complete this topic Meningococcal Vaccine Aged Out No brian iman eligible based on patient's age to complete this topic Pneumococcal Vaccine Aged Out No long er eligible based on patient's age to complete this topic
--- OUTSIDE RECORDS SUMMARY | 2024-05-01 13:29 | XMS_ITS | Encounter Summary ---
Author Organization [facility] Address [address] [place], [place] [id number] Phone Care Team Providers Care Brush Finisher Name Role Phone Zaki De MD Primary Care Provider [phone] Encounter Details Date Type Department Care Team (Late st Contact Info) Description 11/05/2016 Conversion Encounter [facility] [place] [address] [facility] [place] [address] Social History Tobacco Use Types Packs/Day Years Used Date Smoking Tobacco: Never Assessed Sex and Gender Information Value Date Recorded Sex Assigned at Not on file Legal Sex Male 4:36 PM EDT Gender Identity Not on file Sexual Orientation Not on file documented as of this encounter Plan of Treatment Not on file documented as of this encounter Visit Diagnoses Not on filedocumented in this encounter Care Teams Brush Finisher Relationship Specialty Start Date End Date Zaki De MD [address] [facility] [place] [address] PCP - General 10/30/16 07/01/22 documented as of this encounter
== END 2024-05-01 13:08 | disposition home or self-care (01) ==
PROVIDERS: PCP Internal Medicine; Visit Provider Internal Medicine
DX: Z00.00 Encounter for general adult medical examination without abnormal findings (principal); E66.01 Morbid (severe) obesity due to excess calories; Z68.43 Body mass index [BMI] 50.0-59.9, adult; E78.00 Pure hypercholesterolemia, unspecified; E55.9 Vitamin D deficiency, unspecified; K59.00 Constipation, unspecified; N20.0 Calculus of kidney; F51.01 Primary insomnia; F41.9 Anxiety disorder, unspecified; F32.9 Major depressive disorder, single episode, unspecified

== ENCOUNTER → 2024-05-01 12:26 | Outpatient (BNVA) | payer OTHER, SELFPAY | PROVIDERS: PCP Internal Medicine; Visit Provider Internal Medicine | DX: Z00.00 Encounter for general adult medical examination without abnormal findings (principal); E78.00 Pure hypercholesterolemia, unspecified; E55.9 Vitamin D deficiency, unspecified; K59.00 Constipation, unspecified; N20.0 Calculus of kidney; F51.01 Primary insomnia; F41.9 Anxiety disorder, unspecified; F32.9 Major depressive disorder, single episode, unspecified; E66.01 Morbid (severe) obesity due to excess calories; Z68.43 Body mass index [BMI] 50.0-59.9, adult; Z71.3 Dietary counseling and surveillance | CPT/HCPCS: 96127; 99395 ==

== ENCOUNTER 2024-10-02 08:21 | Outpatient (REF) | payer OTHER, SELFPAY ==
--- NOTE | ~2024-10-02 | US_ITS ---
EXAMINATION: US KIDNEY BILATERAL HISTORY: R31.9 - Hematuria, unspecified TECHNIQUE: Real-time grayscale ultrasound imaging of the kidneys was performed and images were reviewed. COMPARISON: Comparison is made with the prior examination dated 11/03/2023. FINDINGS: Right kidney: The right kidney measures 14.2 x 4.8 x 6.9 cm. Renal parenchymal echotexture and thickness are normal. There are no masses. There is no hydronephrosis or renal calculi. Left Kidney: The left kidney measures 13.2 x 6.4 x 5.1 cm. Renal parenchymal echotexture and thickness are normal. There are no masses. There is mild pelvic fullness. No hydronephrosis. US/US renal BI IMPRESSION: Mild fullness of the left renal pelvis. No hydronephrosis or nephrolithiasis. Electronically signed by: Amilcar Fox MD 10/02/2024 08:52 AM EDT
--- OUTSIDE RECORDS SUMMARY | 2024-10-02 08:23 | XMS_ITS | Encounter Summary ---
Author Organization [facility] Address [address] [place], [place] [id number] Phone Care Team Providers Care Marine Diesel Mechanic Name Role Phone Zaki De MD Primary Care Provider [phone] Encounter Details Date Type Department Care Team (Late st Contact Info) Description 11/05/2016 Conversion Encounter [facility] [place] [address] [facility] [place] [address] Social History Tobacco Use Types Packs/Day Years [...] on filedocumented in this encounter Care Teams Marine Diesel Mechanic Relationship Specialty Start Date End Date Zaki De MD [address] [facility] [place] [address] PCP - General 10/30/16 07/01/22 documented as of this encounter
== END 2024-10-02 08:22 | disposition home or self-care (01) ==
LOC: HO.US 08:21
PROVIDERS: PCP Internal Medicine; Visit Provider Nurse Practitioner Family
DX: N20.0 Calculus of kidney (principal); R31.9 Hematuria, unspecified
CPT/HCPCS: 76775

== ENCOUNTER → 2024-10-02 08:25 | Outpatient (BNV) | payer OTHER, SELFPAY | PROVIDERS: PCP Internal Medicine; Visit Provider Radiology Diagnostic Radiology | DX: R31.9 Hematuria, unspecified (principal) | CPT/HCPCS: 76775 ==

== ENCOUNTER 2024-10-17 09:47 | Outpatient (AMB) | payer OTHER, SELFPAY ==
--- NOTE | 2024-10-17 09:51 | MHC.OFFVIS ---
Intake Visit Reasons: 1y/US(set) Intake Note: Patient is present for 1Y/US Urology Medication:NONE Antibiotic Allergy:PENICILLINS Blood Thinner:NONE Servomechanism Assembler Required: No Allergies penicillin V Allergy (Unknown, Verified 10/17/24 10:36) ??? - has taken amoxicillin with no problems Penicillins (PENICILLINS) Allergy (Unknown, Verified 10/17/24 10:36) UNK Medication List - Last Reconciled 10/17/24 by KIKO Zhu No Known Home Meds HPI Comments Details: Daniele is a pleasant 34-year-old male patient of Dr. Washburn. He has a past medical history of nephrolithiasis, anxiety, constipation, hemorrhoids, insomnia, morbid obesity, vitamin-D deficiency, and hyperlipidemia. He presents to the office today for follow-up of his nephrolithiasis. In discussion with the patient today he reports he was only able to obtain renal portion of his imaging as he did not have a full bladder in his due to have his bladder ultrasound the beginning of October. He does report noting new onset of lumbar discomfort in his unsure if this is related to his nephrolithiasis. Recent renal imaging results were reviewed. 10/13 bilateral kidneys are normal in thickness and echotexture. There are no renal masses, hydronephrosis or renal calculi noted bilaterally. There is mild fullness to the left renal pelvis. On exam today no CVA tenderness noted bilaterally. During palpation of lumbar area he does report mild discomfort. We did discussed potential for musculoskeletal discomfort verses nephrolithiasis. In office urinalysis results reviewed with the patient today. Patient presents to the office today for a follow up of his nephrolithiasis. Recent renal imaging results reviewed with the patient today. When asked he denies urinary urgency, urinary frequency, incontinence, nocturia, hematuria, dysuria, foul-smelling urine, changes to urinary stream, flank pain, fever, and or chills. He reports he is currently happy with his voiding parameters. He otherwise offers no other issues or concerns at this time. [facility] Medical History Nephrolithiasis Memory loss of unknown cause Anxiety Constipation Hemorrhoids Insomnia Morbid obesity with BMI of 50.0-59.9, adult Vitamin D deficiency Hyperlipidemia Surgical History Testicular torsion History of wisdom tooth extraction Family History Father Hyperlipidemia Paroxysmal atrial fibrillation Mother Diabetes FH: mental illness Family/Other FH: mental illness Maternal Grandfather Alzheimer's dementia Paternal Grandfather Skin cancer Paternal Uncle Multiple sclerosis Social History Housing: Apartment Alcohol intake: never Patient Tobacco Use Status: Never used Tobacco e-Cigarette/Vaping Use: Never Used Second Hand Smoke Exposure: Yes service: No Current occupational status: employed Cognitive needs: No Hearing needs: No Vision needs: Yes Review of Systems Const All systems reviewed & are unremarkable except as noted in HPI and below Physical Exam Const General: cooperative, healthy appearing, comfortable, no acute distress, well developed, alert and awake Nutritional Appearance: overweight Orientation/consciousness: patient oriented x3 Limitations: no limitations HEENT Head: Yes normal to inspection, Yes normocephalic and Yes atraumatic Ears: hearing grossly normal bilaterally Eyes General: appearance normal, both eyes and all related structures Neck Neck: Yes normal visual inspection and Yes trachea midline Chest Chest palpation & inspection: normal inspection of the chest Resp Effort & Inspection: normal respiratory effort and able to speak in complete sentences Cardio Rate: regular rate GI Inspection: Yes normal to inspection General: Yes no CVA tenderness Back/Spine/Pelvis Back: no CVA tenderness Skin General skin exam: no rashes or lesions noted Neuro General: patient oriented x3 Extrem General: Yes normal to inspection Psych Appearance: grossly normal and well kempt Mental Status: mental status grossly normal Speech and movement: Normal speech and movement present and Clear speech present Affect: normal affect Attitude: cooperative Thought process: Normal thought process present Thought content: Normal thought content present Insight: Fair insight present (Psych) Judgement: Fair judgement present (Psych) Results AMB Urinalysis, Automated UA Leukoctes 0 Meme/uL Last Edit by KASEY Raines on 10/17/24 10:08 UA Nitrite Negative Last Edit by KASEY Raines on 10/17/24 10:08 UA Urobilinogen 0.2 mg/dL Last Edit by KASEY Raines on 10/17/24 10:08 UA Protein 15 mg/dL Last Edit [facility] on 10/17/24 10:08 UA pH 6.0 Last Edit by Kev Mays [facility] on 10/17/24 10:08 UA Blood 0 Prince/uL Last Edit by Kev Mays [facility] on 10/17/24 10:08 UA Specific Sheridan 1.030 Last Edit by Kev Mays [facility] on 10/17/24 10:08 UA Ketone Negative Last Edit by Kev Mays [facility] on 10/17/24 10:08 UA Bilirubin 1 mg/dL Last Edit by Kev Mays [facility] on 10/17/24 10:08 UA Glucose 0 mg/dL Last Edit by Kev Mays [facility] on 10/17/24 10:08 Results Reviewed Results Reviewed: Laboratory Last Values Urine pH (Auto) 6.0 10/17/24 10:06 Specific Sheridan (Auto) 1.030 10/17/24 10:06 Urine Protein (Auto) 15 mg/dL 10/17/24 10:06 Glucose (UA)(Auto) 0 mg/dL 10/17/24 10:06 Urine Ketones (Auto) Negative 10/17/24 10:06 Urine Blood (Auto) 0 Prince/uL 10/17/24 10:06 Urine Nitrite (Auto) Negative 10/17/24 10:06 Urine Bilirubin (Auto) 1 mg/dL 10/17/24 10:06 Urine Urobilinogen (Auto) 0.2 mg/dL 10/17/24 10:06 Leukocyte Esterase (Auto) 0 Meme/uL 10/17/24 10:06 Date of Service: 10/02/24 Procedure(s): US renal BI FINDINGS: Right kidney: The right kidney measures 14.2 x 4.8 x 6.9 cm. Renal parenchymal echotexture and thickness are normal. There are no masses. There is no hydronephrosis or renal calculi. Left Kidney: The left kidney measures 13.2 x 6.4 x 5.1 cm. Renal parenchymal echotexture and thickness are normal. There are no masses. There is mild pelvic fullness. No hydronephrosis. IMPRESSION: Mild fullness of the left renal pelvis. No hydronephrosis or nephrolithiasis. Assessment & Plan Assessment & Plan (1) Nephrolithiasis: Code(s): N20.0 - Calculus of kidney Category: Medical Plan In office urinalysis results with the patient today; as noted above. Recent renal ultrasound results reviewed with the patient today; as noted above. We discussed musculoskeletal pain verses nephrolithiasis. Will continue with surveillance monitoring. He currently denies any bothersome urinary issues or concerns. He reports be happy with current voiding parameters. Bladder ultrasound pending. Follow-up in 1-2 months with bladder ultrasound to be completed prior; or sooner with any issues, concerns, and or questions. Orders: Orders AMB Urinalysis Automated Today Z13.9 - Encounter for screening, unspecified Patient Instructions: The patient had an opportunity to ask questions regarding the treatment plan. All questions were answered. Physical exam, labs, and imaging were discussed and reviewed in detail. As well as risks, benefits, and discussion of treatment choices. No major barriers to understanding were identified. The patient expressed understanding and agreement with the above treatment plan. The patient was made aware they should contact our office by phone for worsening of their current condition, the appearance of new symptoms, or with any questions or concerns. Compliance is encouraged with any medications and follow up testing that is ordered. It is a privilege to be allowed the opportunity to participate in? your urological care.? Again, if you have any questions or concerns If you have any questions or concerns please do not hesitate to contact me. The office is [phone]. This note is constructed using voice recognition software. While every effort has been made to ensure accuracy mechanical technical service specialist errors may have been included. Yours sincerely, KIKO Zhu Coding Level of Care Code Est Pt Level 3 (56548) Diagnoses Nephrolithiasis N20.0
== END 2024-10-17 10:32 | disposition home or self-care (01) ==
LOC: HO.HUSH 09:48
PROVIDERS: PCP Internal Medicine; Visit Provider Nurse Practitioner Family
DX: Z13.9 Encounter for screening, unspecified (principal); N20.0 Calculus of kidney
CPT/HCPCS: 99213

== ENCOUNTER → 2024-10-17 09:47 | Outpatient (BNVA) | payer OTHER, SELFPAY | PROVIDERS: PCP Internal Medicine; Visit Provider Nurse Practitioner Family | DX: N20.0 Calculus of kidney (principal) | CPT/HCPCS: 81003; 99212 ==

== ENCOUNTER 2024-10-30 13:05 | Outpatient (AMB) | payer OTHER, SELFPAY ==
[2024-10-30 13:18] VITALS: BP 124/86; PULSE 75; O2SAT 97; BMI 59.9
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
== END 2024-10-30 14:08 | disposition home or self-care (01) ==
LOC: HO.HMCH 13:05
PROVIDERS: PCP Internal Medicine; Visit Provider Internal Medicine
DX: M54.50 Low back pain, unspecified (principal); M53.3 Sacrococcygeal disorders, not elsewhere classified; M25.572 Pain in left ankle and joints of left foot; E78.00 Pure hypercholesterolemia, unspecified; E55.9 Vitamin D deficiency, unspecified; K59.00 Constipation, unspecified; N20.0 Calculus of kidney; F51.01 Primary insomnia; F41.9 Anxiety disorder, unspecified; F32.9 Major depressive disorder, single episode, unspecified; E66.01 Morbid (severe) obesity due to excess calories; Z68.43 Body mass index [BMI] 50.0-59.9, adult

== ENCOUNTER → 2024-10-30 13:05 | Outpatient (BNVA) | payer OTHER, SELFPAY | PROVIDERS: PCP Internal Medicine; Visit Provider Internal Medicine | DX: M25.572 Pain in left ankle and joints of left foot (principal); R10.32 Left lower quadrant pain; M54.50 Low back pain, unspecified; M53.3 Sacrococcygeal disorders, not elsewhere classified; E78.00 Pure hypercholesterolemia, unspecified; E55.9 Vitamin D deficiency, unspecified; K59.00 Constipation, unspecified; N20.0 Calculus of kidney; F51.01 Primary insomnia; F41.9 Anxiety disorder, unspecified; F32.9 Major depressive disorder, single episode, unspecified; E66.01 Morbid (severe) obesity due to excess calories; Z68.43 Body mass index [BMI] 50.0-59.9, adult | CPT/HCPCS: 96127; 99212 ==

== ENCOUNTER 2024-11-02 08:25 | Outpatient (REF) | payer OTHER, SELFPAY ==
--- NOTE | ~2024-11-02 | XR_ITS ---
EXAMINATION: XR SACRUM AND COCCYX CLINICAL INFORMATION: M54.50 - Low back pain, unspecified COMPARISON: Correlated to CT abdomen pelvis dated June 19, 2022. TECHNIQUE: AP and lateral views. FINDINGS: No acute cortical disruption. Mild spondylosis at the lower lumbar spine. Mild sclerosis and the sacroiliac joints. Mild degenerative changes in the symphysis pubis. XR/XR sacrum coccyx min 2V IMPRESSION: No acute fracture. Electronically signed by: Orion Fisher MD 11/02/2024 09:45 AM EDT
--- NOTE | ~2024-11-02 | XR_ITS ---
EXAMINATION: XR SACROILIAC JOINTS CLINICAL INFORMATION: M54.50 - Low back pain, unspecified COMPARISON: Correlated to CT abdomen pelvis dated June 19, 2022. TECHNIQUE: AP and oblique views of the sacroiliac joints FINDINGS: Mild sclerosis in the inferior sacroiliac joints with minimal vacuum phenomenon. Facet joint hypertrophy at L5-S1. XR/XR sacroiliac joint min 3V IMPRESSION: Mild sacroiliitis. This could be seen patients with seronegative arthritis. Electronically signed by: Orion Fisher MD 11/02/2024 09:46 AM EDT
--- NOTE | ~2024-11-02 | XR_ITS ---
EXAMINATION: XR LUMBAR SPINE 2-3 VIEWS HISTORY: M54.50 - Low back pain, unspecified COMPARISON: Comparison is made with the prior examination dated 06/05/2022. FINDINGS: AP, lateral, and coned down views of the lumbar spine are submitted. Osseous mineralization is normal. Five nonrib-bearing lumbar vertebral bodies are identified, maintaining normal height and alignment without evidence of fracture or spondylolisthesis. There is mild disc space narrowing at L4-5. The remaining intervertebral disc spaces are maintained. The posterior elements are intact. The visualized paraspinal soft tissues are unremarkable. XR/XR lumbar spine 2-3V IMPRESSION: Mild disc space narrowing at L4-5. Electronically signed by: Amilcar Fox MD 11/02/2024 09:44 AM EDT
--- NOTE | ~2024-11-02 | XR_ITS ---
EXAMINATION: XR ANKLE, LEFT CLINICAL INFORMATION: ROLLED ANKLE, BACK PAIN COMPARISON: Radiographs of July 16, 2017 TECHNIQUE: AP, lateral, and oblique views of the left ankle. FINDINGS: Technologist placed an arrow in the medial aspect of the ankle, indicating the location of the clinical concern. Normal alignment. No acute fracture or evidence of osteochondral defect. Ankle mortise is maintained. Ossification at the insertion of the Achilles tendon onto the calcaneus. Soft tissue swelling about the ankle. XR/XR ankle LT min 3V IMPRESSION: No acute fracture or dislocation. Electronically signed by: Nate Ambriz MD 11/02/2024 09:46 AM EDT
--- OUTSIDE RECORDS SUMMARY | 2024-11-02 08:34 | XMS_ITS | Encounter Summary ---
Author Organization [facility] Address [address] [place], [place] [address] Phone Care Team Providers Care Automatic Packer Operator Name Role Phone Zaki De MD Primary Care Provider [phone] Encounter Details Date Type Department Care Team (Late st Contact Info) Description 11/05/2016 Conversion Encounter [facility] - [place] [address] [facility] [place] [address] Social History Tobacco Use Types Packs/Day Years [...] on filedocumented in this encounter Care Teams Automatic Packer Operator Relationship Specialty Start Date End Date Zaki De MD [address] [facility] [place] [address] PCP - General 10/30/16 07/01/22 documented as of this encounter
[2024-11-02 08:50] LABS: MANUAL DIFF FLAG NO
[2024-11-02 09:10] LABS: Hematocrit 46.5 % (42.0-52.0); Hemoglobin 15.5 g/dl (14.0-18.0); Imm Gran Abs Auto 0.05 X10*3/uL (0.00-0.03); Imm Gran Pct Auto 0.6 % (0.0-0.4); Lymphocytes Absolute Auto 3.0 X10*3/uL (1.2-4.9); Mean Corpuscular HGB Conc 33.3 g/dl (31.0-36.0); Mean Corpuscular Hemoglobin 29.9 pg (27.0-33.0); Mean Corpuscular Volume 89.8 fL (80.0-98.0); NRBC Abs Auto 0.000 X10*3/uL (0.0-0.012); NRBC Pct Auto 0.0 /100WBC (0.0-0.2); Platelet Count 214 X10*3/uL (160-400); Red Blood Count 5.18 X10*6/uL (4.60-5.80); White Blood Count 8.8 X10*3/uL (4.8-10.8)
[2024-11-02 09:39] LABS: Alanine Aminotransferase 56 U/L (0-40); Albumin Level 4.2 g/dL (3.5-5.0); Alkaline Phosphatase 75 U/L (39-117); Anion Gap 14 (12-20); Aspartate Amino Transferase 48 U/L (5-37); Blood Urea Nitrogen 10 mg/dL (9-16); Calcium 9.6 mg/dL (8.4-10.2); Carbon Dioxide 28 mmol/L (22-29); Chloride 104 mmol/L (96-108); Cholesterol 236 mg/dL (<200); Estimated Glomerular Filt Rate > 60; HDL Cholesterol 34 mg/dL (>40); Potassium 4.7 mmol/L (3.3-5.1); Sodium 141 mmol/L (135-145); Total Protein 7.7 g/dL (6.5-8.0); Triglycerides 128 mg/dL (<150)
[2024-11-02 10:00] LABS: Hemoglobin A1C 171.0958 umol/L; Total Hemoglobin (HGBA1C) 4047.9235 umol/L
[2024-11-02 10:09] LABS: Folate 5.8 ng/mL (> or = 4.0); Vitamin B12 179 pg/mL (200-900)
[2024-11-02 12:09] LABS: Appearance Urine Clear; Glucose Urine UA Negative (Negative); PH 5.5 (5.0-9.0); Specific Gravity - Urine 1.020 (1.005-1.025); UMIC TRIGGER UACC YES
== END 2024-11-02 08:26 | disposition home or self-care (01) ==
LOC: HO.LAB 08:25
PROVIDERS: PCP Internal Medicine; Visit Provider Internal Medicine
DX: Z00.00 Encounter for general adult medical examination without abnormal findings (principal); M53.3 Sacrococcygeal disorders, not elsewhere classified; D64.9 Anemia, unspecified; R73.9 Hyperglycemia, unspecified; E78.00 Pure hypercholesterolemia, unspecified; E55.9 Vitamin D deficiency, unspecified; E53.8 Deficiency of other specified B group vitamins; M54.50 Low back pain, unspecified; R30.0 Dysuria
CPT/HCPCS: 36415; 72100; 72202; 72220; 73610; 80053; 80061; 81001; 82306; 82607; 82746; 83036; 84443; 85025

== ENCOUNTER → 2024-11-02 08:54 | Outpatient (BNV) | payer OTHER, SELFPAY | PROVIDERS: PCP Internal Medicine; Visit Provider Radiology Body Imaging | DX: M54.50 Low back pain, unspecified (principal); S93.402A Sprain of unspecified ligament of left ankle, initial encounter | CPT/HCPCS: 72100; 72202; 72220; 73610 ==

== ENCOUNTER 2024-11-06 13:52 | Outpatient (REF) | payer OTHER, SELFPAY ==
--- NOTE | ~2024-11-06 | US_ITS ---
EXAMINATION: US PELVIS LIMITED (BLADDER) CLINICAL INFORMATION: Hematuria.. COMPARISON: November 03, 2023. TECHNIQUE: Real-time imaging of the bladder. FINDINGS: BLADDER: Fluid-filled. Bilateral ureteral jets are demonstrated. Prevoid bladder volume is 241 mL. Postvoid bladder volume is 7 mL. US/US bladder IMPRESSION: 7 cc, minimal, residual amount of urine in a post void image.. Electronically signed by: Orion Fisher MD 11/06/2024 02:51 PM EDT
--- OUTSIDE RECORDS SUMMARY | 2024-11-06 14:41 | XMS_ITS | Encounter Summary ---
Author Organization [facility] Address [address] [place], [place] [address] Phone Care Team Providers Care Structural Design Engineer Name Role Phone Zaki De MD Primary Care Provider [phone] Encounter Details Date Type Department Care Team (Late st Contact Info) Description 11/05/2016 Conversion Encounter [facility] - [place] [address] [place] [address] Social History Tobacco Use Types Packs/Day Years [...] on filedocumented in this encounter Care Teams Structural Design Engineer Relationship Specialty Start Date End Date Zaki De MD [address] [facility] [place] [address] PCP - General 10/30/16 07/01/22 documented as of this encounter
== END 2024-11-06 13:53 | disposition home or self-care (01) ==
LOC: HO.US 13:52
PROVIDERS: PCP Internal Medicine; Visit Provider Nurse Practitioner Family
DX: R31.9 Hematuria, unspecified (principal)
CPT/HCPCS: 76857

== ENCOUNTER → 2024-11-06 13:53 | Outpatient (BNV) | payer OTHER, SELFPAY | PROVIDERS: PCP Internal Medicine; Visit Provider Radiology Diagnostic Radiology | DX: R31.0 Gross hematuria (principal) | CPT/HCPCS: 76857 ==

== ENCOUNTER 2024-12-14 11:36 | Outpatient (AMB) | payer OTHER, SELFPAY ==
--- NOTE | 2024-12-14 11:40 | A.OFFVIS_ITS ---
Intake Visit Reasons: US Results Intake Note: Patient is present for US F/U Urology Medication:NONE Antibiotic Allergy:PENICILLINS Blood Thinner:NONE Toll Service Observer Required: No Allergies penicillin V Allergy (Unknown, Verified 12/14/24 12:06) ??? - has taken amoxicillin with no problems Penicillins (PENICILLINS) Allergy (Unknown, Verified 12/14/24 12:06) UNK Medication List - Last Reconciled 12/14/24 by KIKO Zhu No Known Home Meds HPI Comments Details: Daniele is a pleasant 34-year-old male patient of Dr. Washburn. He has a past medical history of nephrolithiasis, anxiety, constipation, hemorrhoids, insomnia, morbid obesity, vitamin-D deficiency, and hyperlipidemia. He is being followed up on today via video telehealth for his history of nephrolithiasis and ongoing lumbar discomfort. Recent renal imaging 10/13 results noted bilateral kidneys are normal in thickness and echotexture. There are no renal masses, hydronephrosis or renal calculi noted bilaterally. There is mild fullness to the left renal pelvis. Recent bladder ultrasound results were reviewed today 11/13 the bladder is fluid-filled. Bilateral ureteral jets are demonstrated. Postvoid bladder volume is 7 mL. He does continue to experience ongoing lumbar discomfort and has recently followed up with his PCP at which time imaging has been ordered. When asked he denies urinary urgency, urinary frequency, incontinence, nocturia, hematuria, dysuria, foul-smelling urine, changes to urinary stream, flank pain, fever, and or chills. He reports he is currently happy with his voiding parameters. All questions were answered. He otherwise offers no other issues or concerns at this time. [facility] Medical History Nephrolithiasis Memory loss of unknown cause Anxiety Constipation Hemorrhoids Insomnia Morbid obesity with BMI of 50.0-59.9, adult Vitamin D deficiency Hyperlipidemia Surgical History Testicular torsion History of wisdom tooth extraction Family History Father Hyperlipidemia Paroxysmal atrial fibrillation Mother Diabetes FH: mental illness Family/Other FH: mental illness Maternal Grandfather Alzheimer's dementia Paternal Grandfather Skin cancer Paternal Uncle Multiple sclerosis Social History Housing: Apartment Alcohol intake: never Patient Tobacco Use Status: Never used Tobacco e-Cigarette/Vaping Use: Never Used Second Hand Smoke Exposure: Yes service: No Current occupational status: employed Cognitive needs: No Hearing needs: No Vision needs: Yes Review of Systems Const All systems reviewed & are unremarkable except as noted in HPI and below Physical Exam Const General: cooperative, healthy appearing, comfortable, no acute distress, well developed, alert and awake Orientation/consciousness: patient oriented x3 Resp Effort & Inspection: normal respiratory effort and able to speak in complete sentences Neuro General: patient oriented x3 Psych Appearance: grossly normal and well kempt Speech and movement: Clear speech present Affect: normal affect Attitude: cooperative Thought content: Normal thought content present Insight: Fair insight present (Psych) Judgement: Fair judgement present (Psych) Telehealth Telehealth Telehealth Platform: Telephone Location of provider rendering services: practice address Location of patient: address on file Patient Identification confirmed using: Name, : Yes Telehealth method: voice only Patient verbally consented to treatment: Yes Patient verbally consented to billing insurance company: Yes Patient informed of any privacy concerns related to visit: Yes Minutes spent on Phone/Video with Pt.: 15 Results Reviewed Results Reviewed: Date of Service: 11/06/24 Procedure(s): US bladder FINDINGS: BLADDER: Fluid-filled. Bilateral ureteral jets are demonstrated. Prevoid bladder volume is 241 mL. Postvoid bladder volume is 7 mL. IMPRESSION: 7 cc, minimal, residual amount of urine in a post void image. Assessment & Plan Assessment & Plan (1) Nephrolithiasis: Code(s): N20.0 - Calculus of kidney Category: Medical Plan Recent bladder ultrasound results reviewed with the patient today; as noted above. He currently denies any bothersome urinary issues or concerns. He reports be happy with current voiding parameters. Continue follow-up with PCP as planned. We did discussed importance of adequate hydration relation to nephrolithiasis as well as overall health and well-being. All questions were answered to the best of my ability. Will obtain renal ultrasound in 6 months Follow-up in 6 months with imaging; or sooner with any issues, concerns, and or questions. Orders: Orders US renal BI 6 Months N20.0 - Calculus of kidney Patient Instructions: The patient had an opportunity to ask questions regarding the treatment plan. All questions were answered. Physical exam, labs, and imaging were discussed and reviewed in detail. As well as risks, benefits, and discussion of treatment choices. No major barriers to understanding were identified. The patient expressed understanding and agreement with the above treatment plan. The patient was made aware they should contact our office by phone for worsening of their current condition, the appearance of new symptoms, or with any questions or concerns. Compliance is encouraged with any medications and follow up testing that is ordered. It is a privilege to be allowed the opportunity to participate in? your urological care.? Again, if you have any questions or concerns If you have any questions or concerns please do not hesitate to contact me. The office is [phone]. This note is constructed using voice recognition software. While every effort has been made to ensure accuracy security assistant errors may have been included. Yours sincerely, KIKO Zhu Coding Level of Care Code Tele Est Pt Level 3 (88108) Diagnoses Nephrolithiasis N20.0
--- OUTSIDE RECORDS SUMMARY | 2024-12-14 16:26 | XMS_ITS | Encounter Summary ---
Author Organization [facility] Address [address] [place], [place] [id number] Phone Care Team Providers Care Bow Maker Production Name Role Phone Zaki De MD Primary Care Provider [phone] Encounter Details Date Type Department Care Team (Late st Contact Info) Description 11/05/2016 Conversion Encounter [facility] [place] [address] [facility] [place] [address] Social History Tobacco Use Types Packs/Day Years [...] on filedocumented in this encounter Care Teams Bow Maker Production Relationship Specialty Start Date End Date Zaki De MD [address] [facility] [place] [address] PCP - General 10/30/16 07/01/22 documented as of this encounter
--- OUTSIDE RECORDS SUMMARY | 2024-12-14 16:26 | XMS_ITS | Clinical Summary ---
Author Organization [facility] Address [address] [place] [id number] Phone Care Team Providers Care Electric Motor Repair Supervisor Name Role Phone Unavailable Primary Care Provider [...] of 2 - 13+ 2-dose series) 2001 HPV Vaccines (1 - 3-dose SCDM series) 2015 Influenza Vaccines (#1) 2024 COVID-19 Vaccine (1 - 2023- season) 2024 IPV Vaccines Completed 09/18/1993, 08/04/1989, 1988, Additional [...]
== END 2024-12-14 12:17 | disposition home or self-care (01) ==
LOC: HO.HUSH 11:36
PROVIDERS: PCP Internal Medicine; Visit Provider Nurse Practitioner Family
DX: N20.0 Calculus of kidney (principal)
CPT/HCPCS: 99213